=== PATIENT | female | born 1950 | race Caucasian/White ===

== ENCOUNTER 2021-03-27 08:27 | Emergency (ER) | payer MEDICARE, SELFPAY ==
--- NOTE | ~2021-03-27 | CT_ITS ---
EXAMINATION: CT abdomen pelvis wo con DATE: 03/27/2021 11:10 INDICATION: Left lower quadrant abdominal pain, generalized abdominal pain. Diarrhea. Status post willy endectomy. TECHNIQUE: Computed tomography (CT) of the abdomen and pelvis was performed without intravenous contr ast. Automated exposure control and iterative reconstruction technique were employed. Exam dose: 759 .90 mGy-cm total exam DLP. COMPARISON: 01/31/2017 CT abdomen pelvis FINDINGS: The lung bases are clear. Normal heart size. No pericardial or pleural effusion. Approximately 4.7 mm probable hepatic cyst.. A few hepatic and splenic calcifications are likely due to old granulomatous disease. Normal splenic size. There is some thickening of the wall of the gallbladder and mild pericholecystic fat stranding. Acute or chronic cholecystitis is not excluded. Consider gallbladder ultrasound correlation, with radionuc lide hepatobiliary scan if clinically appropriate. No bile duct or pancreatic duct dilatation. No verdugo creatic mass lesion or calcification. Normal morphology of the adrenal glands. No urinary tract calculus or hydroureteronephrosis. Normal caliber of the abdominal aorta. No intraperitoneal or retroperitoneal or pelvic mass lesion or adenopathy or ascites. The uterus and adnexal areas and urinary bladder are unremarkable. There are numerous diverticula of the sigmoid and descending colon. There is some prominent pericolic fat soft tissue stranding in the proximal to mid sigmoid area, suggesting sigmoid diverticulitis. No significant drainable abscess cavity is identified. No free intraperitoneal air is noted. Status post appendectomy. No bowel obstruction is detected. Diffuse idiopathic skeletal hyperostosis of the thoracic spine. Severe degenerative disc disease at L2-3 through L5-S1. Degenerative change of the lumbar apophyseal joints. Bilateral hip osteoarthritis. IMPRESSION: Sigmoid diverticulitis Diverticulosis of left colon Thickening of the gallbladder wall, mild pericholecystic fat stranding; diffusion diagnosis includes acute and chronic cholecystitis. Consider gallbladder ultrasound, with repeated right hepatic there i s scan if clinically appropriate Status post appendectomy 4.7 mm hepatic cyst Reviewed, dictated and finalized at [facility]. Reviewed, dictated and finalized at location [facility]. IMPRESSION: Sigmoid diverticulitis Diverticulosis of left colon Thickening of the gallbladder wall, mild pericholecystic fat stranding; diffusi on diagnosis includes acute and chronic cholecystitis. Consider gallbladder ult rasound, with repeated right hepatic there is scan if clinically appropriate Status post appendectomy 4.7 mm hepatic cyst
[2021-03-27 08:53] VITALS: BP 156/79; PULSE 77; RESP 17; TEMP 36.4; O2SAT 96
--- NOTE | 2021-03-27 09:09 | ED.ABDPAIN ---
HPI - Abdominal Pain General Chief Complaint: Abdominal Pain Stated Complaint: BLOODY STOOLS Source: patient and family Mode of arrival: ambulatory Limitations: no limitations History of Present Illness MD elicited complaint: abdominal pain Pertinent past history: none Onset (ago): hour(s) (10) Pain Consistency: intermittent Location: LLQ Severity: moderate Quality: aching and sharp Radiation: back Migration to: no migration Exacerbating factors: nothing Relieving factors: nothing Context: confirms possible food poisoning ( Ate some chicken at a faith social) Associated symptoms: nausea, vomiting (once) and diarrhea (with pink mucous) Related Data Home Medications Medication Instructions Recorded Confirmed Bifidobacterium infantis 4 mg 4 mg PO DAILY 11/27/19 03/27/21 capsule cholecalciferol (vitamin D3) 50 50 mcg PO .M W F cap 11/27/19 03/27/21 mcg (2,000 unit) capsule fexofenadine 60 mg tablet 60 mg PO Q12H 02/01/21 03/27/21 psyllium husk 0.4 gram capsule 0.4 g PO DAILY 02/01/21 03/27/21 vitamin B complex 1 tablet PO DAILY 02/01/21 03/27/21 Allergies Allergy/AdvReac Type Severity Reaction Status Date / Time Iodinated Contrast Media Allergy Unknown Unknown Verified 03/27/21 08:49 sertraline Allergy Unknown Hives Verified 03/27/21 08:49 Sulfa (Sulfonamide Allergy Unknown Hives Verified 03/27/21 08:49 Antibiotics) Contrast Media Allergy Unknown Unknown Uncoded 02/01/21 15:28 Review of Systems Review of Systems: All systems reviewed & are unremarkable except as noted in HPI and below Constitutional: Constitutional: Reports chills Comments: was sweaty last night Cardiovascular: Cardiovascular: Denies chest pain Respiratory: Respiratory: Denies cough and Denies dyspnea Genitourinary: Genitourinary: Denies nocturia and Denies dysuria [facility]LY [facility] Past Medical History Medical History Anxiety disorder, unspecified Chronic renal insufficiency, stage III (moderate) Essential (primary) hypertension H/O diverticulitis of colon Hx of colonic polyp Other hyperlipidemia Vitamin B12 deficiency Vitamin D deficiency Surgical History Surgical History History of appendectomy (~03/2018) History of eye surgery Hx of colonoscopy (~2017) polyps - Dr. Holloway- [facility] Hx of dilation and curettage Hx of tonsillectomy Family History Family History Grandparent Family history of coronary artery disease Family history of type 2 diabetes mellitus Social History Social History Second hand tobacco smoke exposure: No Alcohol intake: current Substance use: never Substance use type: does not use Gender identity (if verbalized by the patient): Female Exam Const: General: healthy appearing, no acute distress and alert Nutritional Appearance: well nourished and obese centrally obese Orientation/consciousness: patient oriented x3 HENMT: Head: normal to inspection Ears: external ears normal Mouth: Yes moist mucous membranes Eyes: Conjunctivae: conjunctivae normal Pupils: Equal, round and reactive pupils present EOM: EOMs intact bilaterally Neck: Neck: normal visual inspection Resp: Effort & Inspection: normal respiratory effort Auscultation: clear to auscultation bilaterally Cardio: Rate: regular rate Rhythm: regular rhythm GI: GI Palp: Yes Soft to palpation, Yes Tenderness to palpation present (GI) (LLQ moderate), Yes Guarding due to palpation present (GI) and No Rebound tenderness present Auscultation: normal bowel sounds Back/Spine/Pelvis: Back: No no CVA tenderness Cervical Spine: cervical ROM normal Thoracic/Lumbar Spine: thoraco-lumbar ROM normal Skin: General skin exam: normal color Rashes: no rashes Neuro: General: patient oriented x3, moves all extremities, no meningeal signs and n
[2021-03-27 09:41] LABS: Basophils Absolute Auto 0.02 K/mm3 (0.00-0.10); Basophils Percent Auto 0.2 % (0.0-1.0); Eosinophils Absolute Auto 0.07 K/mm3 (0.02-0.50); Eosinophils Percent Auto 0.6 % (1.0-6.0); Hematocrit 40.2 % (35.0-42.0); Hemoglobin 13.3 g/dL (11.7-13.8); Immature Granulocyte Absolute 0.06 K/mm3 (0.00-0.00); Immature Granulocyte Percent A 0.5 % (0.0-0.0); Lymphocytes Absolute Auto 1.31 K/mm3 (1.10-4.50); Lymphocytes Percent Auto 10.4 % (18.0-42.0); Mean Corpuscular HGB Conc 33.1 g/dL (32.0-36.0); Mean Corpuscular Volume 90.5 fL (78.0-102.0); Mean Platelet Volume 9.9 fl (9.2-11.8); Monocytes Absolute Auto 0.87 K/mm3 (0.10-0.90); Monocytes Percent Auto 6.9 % (2.0-11.0); Neutrophils Absolute Auto 10.3 K/mm3 (1.7-7.2); Neutrophils Percent Auto 81.4 % (50.0-70.0); Platelet Count Result 265 K/mm3 (150-420); Red Blood Count 4.44 M/mm3 (4.20-5.40); Red Cell Distribution Width 13.3 % (11.6-14.4); White Blood Count 12.6 K/mm3 (4.8-10.8)
--- NOTE | 2021-03-27 09:46 | PC.NURSE ---
urine sample obtained and delivered to lab with pt label on container.
[2021-03-27 09:47] LABS: Add Urine Microscopic? YES; Appearance Urine Clear (Clear); Bilirubin Urine Negative (Negative); Blood Urine 1+ (Negative); Color Urine Light Yellow (Yellow); Glucose Urine UA Negative (Negative); Ketones Urine Negative (Negative); Leukocyte Esterase Ur Trace LEU/UL (Negative); Nitrate Urine Negative (Negative); Protein Urine Negative (Negative); Urobilinogen Urine 0.2 mg/dL (0.2-1.0)
[2021-03-27 09:52] LABS: Bacteria Urine Trace /hpf; RBC Urine None seen /hpf (0-2); Squamous Epithelial Cell Urine Few /hpf (Few); WBC Urine 0-3 /hpf (0-3)
[2021-03-27 09:56] LABS: Alanine Aminotransferase 33 U/L (14-59); Albumin Level 3.7 g/dL (3.4-5.0); Alkaline Phosphatase 79 U/L (46-116); Anion Gap 12 mmol/L (8-16); Aspartate Amino Transferase 17 U/L (15-37); Bilirubin,Total 0.5 mg/dL (0.00-1.00); Blood Urea Nitrogen 22 mg/dL (7-18); Calcium 9.1 mg/dL (8.5-10.1); Carbon Dioxide 26 mmol/L (21-32); Chloride 103 mmol/L (98-108); Estimated CRCL calculation 47 ml/min; Estimated Glomerular Filt Rate 51; Glucose 104 mg/dL (70-99); Lipase 108 U/L (73-393); Osmolality Calculated 295 mOsm/kg (285-295); Potassium 4.3 mmol/L (3.5-5.1); Sodium 141 mmol/L (136-145); Total Protein 7.6 g/dL (6.4-8.2)
[2021-03-27 10:09] LABS: CRP 2.6 mg/dL (0.0-0.9)
[2021-03-27 11:38] VITALS: BP 138/70; PULSE 63; RESP 17; O2SAT 96
[2021-03-27 12:24] VITALS: BP 139/71; PULSE 57; RESP 17; O2SAT 96
== END 2021-03-27 12:27 | disposition home or self-care (01) ==
PROVIDERS: Emergency Provider Emergency Medicine; PCP Family Medicine
DX: K57.32 Diverticulitis of large intestine without perforation or abscess without bleeding (principal); F41.9 Anxiety disorder, unspecified; I12.9 Hypertensive chronic kidney disease with stage 1 through stage 4 chronic kidney disease, or unspecified chronic kidney disease; N18.30 Chronic kidney disease, stage 3 unspecified; E78.5 Hyperlipidemia, unspecified; E53.8 Deficiency of other specified B group vitamins; E55.9 Vitamin D deficiency, unspecified; Z86.010 Personal history of colon polyps
CPT/HCPCS: 36415; 74176; 80053; 81001; 83690; 85025; 86140; 99283; 99284

== ENCOUNTER 2021-04-10 07:47 | Outpatient (CLI) | payer MEDICARE, SELFPAY ==
--- NOTE | ~2021-04-10 | US_ITS ---
US abdomen limited INDICATION: Thickening of the gallbladder seen on recent CT. PROCEDURE: Realtime right upper abdominal ultrasound. COMPARISON: CT dated 03/27/2021 FINDINGS: The pancreas is normal without focal mass or pancreatic ductal dilation. There is a small liver cyst measuring 7 mm. Liver echotexture is increased and somewhat heterogeneous, consistent with fatty infiltration. There is normal directional flow in the portal vein. There are gallstones. Mild gallbladder wall thickening. Common bile duct measures 5 mm. Positive so nographic Gil's sign. IMPRESSION: 1: Cholelithiasis with gallbladder wall thickening and positive sonographic Gil's sign. Findings s uspicious for cholecystitis. Reviewed, dictated and finalized at location [facility]. IMPRESSION: 1: Cholelithiasis with gallbladder wall thickening and positive sonographic Mur phy's sign. Findings suspicious for cholecystitis.
== END 2021-04-10 07:48 | disposition home or self-care (01) ==
LOC: CHSIMG 07:50
PROVIDERS: PCP Family Medicine; Visit Provider Family Medicine
DX: R93.2 Abnormal findings on diagnostic imaging of liver and biliary tract (principal)
CPT/HCPCS: 76705

== ENCOUNTER 2021-04-10 15:41 | Emergency (ER) | payer MEDICARE, SELFPAY ==
[2021-04-10 15:44] VITALS: BP 131/96; PULSE 64; RESP 14; TEMP 36.4; O2SAT 99
[2021-04-10 16:16] LABS: Basophils Percent Auto 0.5 % (0.2-1.2); Eosinophils Absolute Auto 0.1 K/mm3 (0-0.3); Eosinophils Percent Auto 0.6 % (0-4.4); Hematocrit 40.1 % (37.0-47.0); Hemoglobin 13.3 g/dL (12.0-15.0); Immature Granulocyte Absolute 0.02 K/mm3 (0.00-0.031); Immature Granulocyte Percent A 0.2 % (0-0.5); Lymphocytes Absolute Auto 1.51 K/mm3 (0.9-3.2); Lymphocytes Percent Auto 17.9 % (18.3-44.2); Mean Corpuscular HGB Conc 33.2 g/dl (32-36); Mean Corpuscular Hemoglobin 30.3 pg (26-34); Mean Corpuscular Volume 91.3 fl (80-100); Mean Platelet Volume 10.6 fl (7.4-10.4); Monocytes Absolute Auto 0.7 K/mm3 (0.1-0.6); Monocytes Percent Auto 8.6 % (2.6-8.5); Neutrophils Absolute Auto 6.1 K/mm3 (1.3-6.7); Neutrophils Percent Auto 72.2 % (45.5-73.1); Platelet Count Result 275 k/mm3 (150-375); Red Blood Count 4.39 M/mm3 (4.2-5.4); White Blood Count 8.4 K/mm3 (4.5-10.0)
[2021-04-10 16:31] LABS: Alanine Aminotransferase 24 U/L (4-35); Albumin Level 4.6 g/dL (3.5-5.1); Alkaline Phosphatase 64 U/L (38-126); Anion Gap 11 mmol/L (8-16); Aspartate Amino Transferase 31 U/L (14-36); Bilirubin,Total 0.8 mg/dL (0.2-1.3); Blood Urea Nitrogen 16 mg/dL (7-17); Calcium 9.8 mg/dL (8.4-10.2); Carbon Dioxide 23 mmol/L (22-30); Chloride 104 mmol/L (98-107); Estimated CRCL calculation 49 ml/min; Estimated Glomerular Filt Rate 55; Glucose 95 mg/dL (65-110); Lipase 97 U/L (23-300); Potassium 4.2 mmol/L (3.4-5.0); Sodium 138 mmol/L (137-145)
[2021-04-10 16:53] VITALS: BP 142/74; PULSE 51; RESP 16; O2SAT 91
--- NOTE | 2021-04-10 17:47 | ED.GENADULT ---
HPI - General Adult General Chief complaint: Abdominal Pain Stated complaint: abn us Source: patient History of Present Illness HPI narrative: Patient is a 70 y/o female complaining of intermittent abdominal pain for last 2 weeks. She states that her pain is located in upper abdomen, more on the right side. She rates her pain as 5/10 when it occurs. Pain radiates to back sometime. She has some nausea at times, but no vomiting. She had outpatient US today and was sent here because it showed possible cholecystitis. Related Data Home Medications Medication Instructions Recorded Confirmed Bifidobacterium infantis 4 mg 4 mg PO DAILY 11/27/19 03/27/21 capsule cholecalciferol (vitamin D3) 50 50 mcg PO .M W F cap 11/27/19 03/27/21 mcg (2,000 unit) capsule fexofenadine 60 mg tablet 60 mg PO Q12H 02/01/21 03/27/21 psyllium husk 0.4 gram capsule 0.4 g PO DAILY 02/01/21 03/27/21 vitamin B complex 1 tablet PO DAILY 02/01/21 03/27/21 vitamin B complex 1 tablet PO DAILY 04/05/21 Allergies Allergy/AdvReac Type Severity Reaction Status Date / Time Iodinated Contrast Media Allergy Unknown Unknown Verified 04/05/21 10:05 sertraline Allergy Unknown Hives Verified 04/05/21 10:05 Sulfa (Sulfonamide Allergy Unknown Hives Verified 04/05/21 10:05 Antibiotics) Contrast Media Allergy Unknown Unknown Uncoded 04/05/21 10:05 Review of Systems Constitutional: Constitutional: Denies chills, Denies fever(s), Denies headache(s) and Denies weakness Eyes: Eyes: Denies blurry vision ENT: Denies headache(s) and Denies neck pain Cardiovascular: Cardiovascular: Denies chest pain and Denies dyspnea Respiratory: Respiratory: Denies cough and Denies dyspnea Gastrointestinal: Gastrointestinal: Reports abdominal pain, Denies diarrhea, Reports nausea and Denies vomiting Genitourinary: Genitourinary: Denies hematuria and Denies dysuria Musculoskeletal: Musculoskeletal: Denies back pain and Denies neck pain Neurologic: Denies headache(s) and Denies weakness PMFSH Past Medical History Medical History Anxiety disorder, unspecified Chronic renal insufficiency, stage III (moderate) Encounter for immunization Essential (primary) hypertension H/O diverticulitis of colon Hx of colonic polyp Other hyperlipidemia Vitamin B12 deficiency Vitamin D deficiency Surgical History Surgical History History of appendectomy (~03/2018) History of eye surgery Hx of colonoscopy (~2017) polyps - Dr. Holloway- [facility] Hx of dilation and curettage Hx of tonsillectomy Family History Family History Grandparent Family history of coronary artery disease Family history of type 2 diabetes mellitus Social History Social History Second hand tobacco smoke exposure: No Alcohol intake: current Substance use: never Substance use type: does not use Gender identity (if verbalized by the patient): Female Exam Const: General: no acute distress and well developed Orientation/consciousness: oriented to person, oriented to place, oriented to time and patient oriented x3 HENMT: Head: normocephalic Ears: external ears normal General nose exam: Normal external nose present Eyes: General: appearance normal, both eyes and all related structures Conjunctivae: conjunctivae normal Neck: Neck: normal visual inspection and full ROM Chest: Chest palpation & inspection: normal inspection of the chest and no tenderness Resp: Effort & Inspection: normal respiratory effort Auscultation: clear to auscultation bilaterally Cardio: Rate: regular rate Rhythm: regular rhythm GI: GI Palp: Yes abdominal tenderness (right upper quadrant) and Yes Soft to palpation Skin: General skin exam: normal color and turgor normal Neuro: General: oriented to person, oriented to getachew
[2021-04-10 19:10] VITALS: BP 142/75; PULSE 55; RESP 16; O2SAT 97
== END 2021-04-10 19:12 | disposition home or self-care (01) ==
PROVIDERS: Emergency Medicine; Emergency Provider Emergency Medicine; PCP Family Medicine
DX: K80.10 Calculus of gallbladder with chronic cholecystitis without obstruction (principal); I12.9 Hypertensive chronic kidney disease with stage 1 through stage 4 chronic kidney disease, or unspecified chronic kidney disease; N18.30 Chronic kidney disease, stage 3 unspecified; E78.5 Hyperlipidemia, unspecified; E53.8 Deficiency of other specified B group vitamins; E55.9 Vitamin D deficiency, unspecified; F41.9 Anxiety disorder, unspecified; Z86.010 Personal history of colon polyps
CPT/HCPCS: 36415; 80053; 83690; 85025; 99283

== ENCOUNTER 2021-04-25 11:17 | Outpatient (CLI) | payer MEDICARE, SELFPAY ==
--- NOTE | 2021-04-25 11:37 | ECG_ITS ---
Measurements Intervals [place] Rate: 57 P: 61 SC: 127 QRS: 31 QRSD: 101 T: 51 QT: 402 QTc: 393 Interpretive Statements SINUS BRADYCARDIA BASELINE ARTIFACT- I, III, AVR, AVL, AVF BORDERLINE ECG Electronically Signed On 04-25-2021 11:53:15 CDT by Jaspal Conroy D.O.
== END 2021-04-25 11:18 | disposition home or self-care (01) ==
LOC: ANHCARD 11:20
PROVIDERS: PCP Family Medicine; Visit Provider Family Medicine
DX: I10 Essential (primary) hypertension (principal); R94.31 Abnormal electrocardiogram [ECG] [EKG]
CPT/HCPCS: 93005

== ENCOUNTER 2021-04-27 10:55 | Outpatient (CLI) | payer MEDICARE, SELFPAY ==
[2021-04-27 11:33] LABS: Amylase 100 U/L (30-110)
== END 2021-04-27 10:56 | disposition home or self-care (01) ==
LOC: ANHSURGERY 10:56
PROVIDERS: PCP Family Medicine; Visit Provider Surgery
DX: K80.10 Calculus of gallbladder with chronic cholecystitis without obstruction (principal); Z01.818 Encounter for other preprocedural examination
CPT/HCPCS: 36415; 82150; 86850; 86900; 86901

== ENCOUNTER 2021-05-01 01:07 | Day surgery (SDC) | payer MEDICARE, SELFPAY ==
[2021-04-26 15:56] VITALS: BMI 33.3
--- NOTE | 2021-04-26 16:03 | PC.NURSE ---
Report to the Outpatient Waiting Room, entrance under the green pavilion located off [facility], at time _12 NOON on date _05/01/21 . OR Time: _2:00 PM . - You and your visitor will be asked a series of questions to screen for COVID 19 for your protection. - A mask is required within the hospital. - Only one visitor is allowed at this time. Patient visitors will be guided where to wait when not with patient. Preoperative COVID Testing Requirements: No COVID Test needed if: (proof is required; if not received patient will have Rapid Test prior to entry) - Patient has received COVID Vaccine at least 14 days prior to procedure date or - Patient has positive COVID test result within last 90 days of surgery date. COVID Test needed if above criteria is not met If not COVID vaccinated a COVID test must be conducted within 72 hours of surgery and patient is asked to isolate self from time of testing until procedure. You will go to the [facility] Testing Site for your COVID testing. The [facility] Testing site is located at the corner of [address] from [facility]. You will only be called if COVID results are positive and your surgeon may reschedule your elective surgery date. Patients may have clear liquids (water, carbonated beverages, clear teas, apple juice) until 3 hours prior to surgery with a maximum of 20 ounces. - No food from midnight until time of surgery - Infants may have breast milk until 4 hours before surgery, formula 6 hours prior to surgery. - Children will be allowed to drink immediately following surgery. If applicable, please bring a bottle or sippy cup to assist with drinking. Juice, water, soda, and popsicles are readily available. For infants on formula, please bring formula the day of surgery. Pacifiers are allowed. Take the following medications with a SIP of water the morning of surgery: BUSPIRONE,ESCITALOPRAM,CARVEDILOL Medications to discontinue per physician ALL VITAMINS AND SUPPLEMENTS Date to take last dose04/27/21 Please no make-up, nail swazi, hairspray, perfume, deodorant, or body powder the day of surgery. No jewelry (including any body piercings) or valuables the day of surgery, leave them at home. Please take a shower or bath the night before, or the morning of, surgery with an antibacterial soap. Wear comfortable, loose fitting clothing. Children are encouraged to wear pajamas. - Jewelry must be removed prior to entering the operating room. Rings and piercings that are not removed may be cut off. - The hospital will not accept responsibility for valuables. - Please leave all valuables, including medications, at home the day of surgery. HIBICLENS SHOWER MORNING OF SURGERY If you are going home after surgery, a licensed tower truck driver must drive you home. - NO public transportation without another adult. - We recommend that an adult stay with you for 24 hours following discharge. - We also recommend that you do not drive, make important decision, drink alcoholic beverages, or take any drugs that were not prescribed by your health care provider for at least 24 hours after your discharge time. For Pediatric surgeries, we recommend two adults accompany the child home (only one inside the building at this time). Follow any additional instructions given to you from your surgeon. Telephone instructions given to _PATIENT and asked if any additional questions and then verbalized understanding. Patient advised to call surgeon office or pre surgery nurse liaison [phone] if any additional questions.
[2021-05-01] VITALS (8 sets, daily range): BP systolic 139–167; BP diastolic 66–91; PULSE 45–56; RESP 12–18; TEMP 36–36.1; O2SAT 97–100
--- NOTE | 2021-05-01 07:39 | WPDANESEPPF ---
Anes - Initial Pre Proc Eval Procedure: Operation Date: 05/01/21 12:00 Proposed Procedures p Laparoscopic Cholecystectomy, Possible Open - Himanshu Ellsworth DO Date/Time: 05/01/21 07:39 Surgeon: Himanshu Ellsworth DO Pre Op Diagnosis: Chronic Cholecystitis With Cholelithiasis Patient Data Age: 70 Gender: F Height: 1.63 m Weight: 88 kg Allergies Allergy/AdvReac Type Severity Reaction Status Date / Time bupropion [From Wellbutrin] Allergy Unknown Hives Verified 04/26/21 15:25 Iodinated Contrast Media Allergy Unknown HIVES/RASH Verified 04/26/21 15:25 sertraline Allergy Unknown Hives Verified 04/26/21 15:25 Sulfa (Sulfonamide Allergy Unknown Hives Verified 04/26/21 15:25 Antibiotics) Contrast Media Allergy Unknown Hives Uncoded 04/26/21 15:26 Home Medications Medication Instructions Recorded Confirmed Type Bifidobacterium infantis 4 mg 4 mg PO QPM 11/27/19 04/26/21 History capsule cholecalciferol (vitamin D3) 50 50 mcg PO DAILY cap 11/27/19 04/26/21 History mcg (2,000 unit) capsule fexofenadine 60 mg tablet 60 mg PO DAILY 02/01/21 04/26/21 History psyllium husk 0.4 gram capsule 0.4 g PO HS 02/01/21 04/26/21 History carvedilol 6.25 mg tablet 6.25 mg PO Q12H #180 tablet 02/22/21 04/26/21 Rx buspirone 5 mg tablet 5 mg PO BID PRN #60 tablet 04/05/21 04/26/21 Rx escitalopram oxalate 20 mg tablet 20 mg PO DAILY #30 tablet 04/05/21 04/26/21 Rx famotidine 40 mg tablet 40 mg PO QHS #30 tablet 04/05/21 04/26/21 Rx cyanocobalamin (vitamin B-12) 1,000 mcg PO DAILY 04/26/21 04/26/21 History simvastatin [Zocor] 10 mg PO QMWF 04/26/21 04/26/21 History vitamins A,C,I-kbzf-lkimhv 1 cap PO DAILY 04/26/21 04/26/21 History [PreserVision AREDS] ECG: Date of Service: 04/25/21 Procedure(s): CA 12 lead EKG Accession Number(s): [id number] cc: ~ Measurements Intervals [place] Rate: 57 P: 61 [place]: 127 QRS: 31 QRSD: 101 T: 51 QT: 402 QTc: 393 Interpretive Statements SINUS BRADYCARDIA BASELINE ARTIFACT- I, III, AVR, AVL, AVF BORDERLINE ECG Electronically Signed On 04-25-2021 11:53:15 CDT by Jaspal Conroy D.O. Patient hx anesthesia problems: none Family hx anesthesia problems: none Results Review: All pre-operative results and documents have been reviewed as part of the pre-operative evaluation. [facility] Past Medical History Medical History (Updated 05/01/21 @ 07:39 by Jesus Jansen MD) Anxiety disorder, unspecified BMI 32.0-32.9,adult Chronic renal insufficiency, stage III (moderate) Encounter for immunization Essential (primary) hypertension H/O diverticulitis of colon Hx of colonic polyp Other hyperlipidemia Vitamin B12 deficiency Vitamin D deficiency Surgical History Surgical History History of appendectomy (~03/2018) History of eye surgery Hx of colonoscopy (~2017) polyps - Dr. Holloway- [facility] Hx of dilation and curettage Hx of tonsillectomy Family History Family History Grandparent Family history of coronary artery disease Family history of type 2 diabetes mellitus Father Heart disease Mother FH: kidney cancer Diabetes mellitus Social History Social History Smoking status: Never smoker Alcohol intake: current Alcohol use details: Rarely Substance use: never Substance use type: does not use Living arrangements: with family Additional living arrangements comments: Lives with Gender identity (if verbalized by the patient): Female Spiritual care concerns: No Anes -
[2021-05-01] MEDS: LACTATED RINGERS 1,000 ML 30 ML IV CONT ×2 (10:47→14:23)
[2021-05-01] MEDS: KETOROLAC 15 MG/ML VIAL (*BKC) IV PUSH (10:48)
[2021-05-01] MEDS: ACETAMINOPHEN 500 MG TABLET 1000 MG PO (10:48)
--- NOTE | 2021-05-01 12:43 | WPDHPUPDATE1 ---
History and Physical Update Update Date/Time: 05/01/21 12:43 History and Physical has been reviewed, including an updated exam of the patient. There are NO changes in the patient's condition. Risks, benefits, and alternatives have been discussed and questions answered. Patient agrees to proceed with procedure.
[2021-05-01] MEDS: ceFAZolin 2 GM/D5W 50 ML 2 GM/50 ML BAG IVPB (13:01)
--- NOTE | 2021-05-01 14:16 | W.PM.PROC2 ---
Procedure Note - Detailed Date of Procedure 05/01/21 Pre-op Diagnosis Chronic Cholecystitis With Cholelithiasis Post-op Diagnosis same Procedure Performed Laparoscopic Cholecystectomy Surgeon Himanshu Ellsworth, DO Anesthesia general and local (0.5% bupivacaine) Indications This is a 70-year-old woman who presented with right upper quadrant pain for the past month. About 1 month ago she was found to have diverticulitis and evidence of a thickened gallbladder wall. She was treated for diverticulitis but still continued to have some upper abdominal pains. Ultrasound showed evidence of cholelithiasis with gallbladder wall thickening. Discussions were made with the patient about treatment options and decision was made to proceed with laparoscopic cholecystectomy, possible open. Findings Laparoscopic cholecystectomy was performed. The gallbladder wall appeared chronically thickened. There were also multiple gallstones within the gallbladder. One large stone was stuck right near the neck of the gallbladder at the cystic duct. The cystic duct appeared normal in size. No other abnormalities were noted. The gallbladder was removed and sent to the lab for pathology. Description of Procedure Procedure as well as risks, benefits, and alternatives were discussed with patient. Written consent was obtained and placed in chart prior to procedure. The patient was brought back to surgical suite. Patient was placed in supine position on operating table. Time-out was done to confirm patient and procedure. Patient was then intubated by the anesthesia department. Abdomen was prepped and draped in sterile fashion using chlorhexidine prep. 0.5% bupivacaine with epinephrine was infiltrated at each site of incision. A 5 millimeter incision was made near the umbilicus, and a 5 millimeter Optiview trocar was advanced through the abdominal layers under direct visualization. Once inside the abdominal cavity, carbon dioxide was insufflated to create a pneumoperitoneum. The camera was inserted and the abdomen was inspected. No immediate abnormalities were identified. The patient was placed in reverse Trendelenburg position and rotated slightly to the left. An 11 millimeter incision was made in the subxiphoid region, and an 11 millimeter trocar was inserted under direct visualization. Two 5 millimeter incisions were made in the right upper quadrant, and two 5 millimeter trocars were inserted under direct visualization. The gallbladder was identified and grasped at the fundus and retracted superiorly. It was then grasped at the infundibulum retracted laterally. Careful dissection around the neck of the gallbladder was performed using blunt dissection with a [place] grasper and hook electrocautery. The cystic duct was identified, and a window was created behind it. The cystic artery was also identified and a window was created behind it. The critical view of safety was identified, visualizing the cystic duct running directly into the neck of the gallbladder, and the cystic artery running directly into the wall of the gallbladder. A 5 millimeter clip system safety engineer was then used to place 2 clips proximally and 1 clip distally on both the cystic duct and cystic artery. They were then both transected using endoscopic scissors. Once safely away from the medardo hepatitis, the gallbladder was dissected free from the liver bed using hook electrocautery. Hemostasis was achieved along the way. The gallbladder was removed completely and then removed through the subxiphoid port. The liver bed was then inspected. Hemostasis appeared adequate, and our clips appeared secure. The area was gently irrigated with sterile saline. No other abnormalities were seen. The patient was flattened out in bed, and 1 final inspection was made around the abdominal cavity. The subxiphoid port was removed, and a Main Kia cone was used to approximate the fascia with an 0-Vicryl simple interrupted suture.
--- NOTE | 2021-05-01 14:59 | SUR.PHASEI ---
Simple mask removed at 1451.
[2021-05-01] MEDS: fentaNYL CITRATE INJ (*CRX) 100 MCG/2 ML VIAL 25 MCG IV PUSH ×2 (15:11→15:36)
[2021-05-01] MEDS: oxyCODONE HCL (*CRX) 5 MG TAB IR PO (15:47)
== END 2021-05-01 16:35 | disposition home or self-care (01) ==
PROVIDERS: PCP Family Medicine; Visit Provider Surgery
PROC: 0FT44ZZ Resection of Gallbladder, Percutaneous Endoscopic Approach (ICD-10-PCS; CPT 47562; principal; 2021-05-01 12:00)
DX: K80.12 Calculus of gallbladder with acute and chronic cholecystitis without obstruction (principal); R00.1 Bradycardia, unspecified; E55.9 Vitamin D deficiency, unspecified; R10.32 Left lower quadrant pain; I12.9 Hypertensive chronic kidney disease with stage 1 through stage 4 chronic kidney disease, or unspecified chronic kidney disease; N18.30 Chronic kidney disease, stage 3 unspecified; E78.5 Hyperlipidemia, unspecified; E53.8 Deficiency of other specified B group vitamins; F41.9 Anxiety disorder, unspecified; E66.9 Obesity, unspecified; Z68.31 Body mass index [BMI] 31.0-31.9, adult
CPT/HCPCS: 47562; 36415; 82150; 86850; 86900; 86901; 88304; A9270; J0690; J1100; J1885; J2250; J2405; J2704; J2710; J3010; J7120

== ENCOUNTER 2021-08-02 15:34 | Outpatient (CLI) | payer MEDICARE, SELFPAY ==
--- NOTE | ~2021-08-02 | XR_ITS ---
XR hip RT 2V w AP pelvis DATE: 08/02/2021 16:01 INDICATION: Posterior right hip pain for 2 months. No injury. TECHNIQUE: AP pelvis. AP and lateral views of right hip. COMPARISON: None FINDINGS: There is prominent asymmetric loss of right hip joint spaces as well as right hip spurring, consistent with prominent right hip osteoarthritis. No fracture or dislocation, avascular necrosis or bone destruction of the right hip is evident. The pubic symphysis and sacroiliac joints are intact. IMPRESSION: Prominent asymmetric right hip osteoarthritis Reviewed, dictated and finalized at location A. UCTION DIRECTOR
== END 2021-08-02 15:35 | disposition home or self-care (01) ==
LOC: CHSIMG 15:36
PROVIDERS: PCP Family Medicine; Visit Provider Family Medicine
DX: M25.551 Pain in right hip (principal)
CPT/HCPCS: 73502

== ENCOUNTER 2021-12-05 10:54 | Outpatient (CLI) | payer MEDICARE, SELFPAY ==
--- NOTE | 2021-12-05 11:06 | ECG_ITS ---
Measurements Intervals [place] Rate: 54 P: 47 [place]: 142 QRS: 52 QRSD: 101 T: 39 QT: 423 QTc: 404 Interpretive Statements SINUS BRADYCARDIA Electronically Signed On 12-05-2021 11:23:23 CDT by Mikey Judd M.D.
== END 2021-12-05 10:55 | disposition home or self-care (01) ==
LOC: ANHLAB 10:58
PROVIDERS: PCP Family Medicine; Visit Provider Family Medicine
DX: I10 Essential (primary) hypertension (principal); R00.1 Bradycardia, unspecified
CPT/HCPCS: 93005

== ENCOUNTER 2021-12-15 11:51 | Outpatient (CLI) | payer MEDICARE, SELFPAY ==
[2021-12-15 13:44] LABS: Basophils Percent Auto 0.6 % (0.2-1.2); Eosinophils Absolute Auto 0.3 K/mm3 (0-0.3); Eosinophils Percent Auto 3.8 % (0-4.4); Hematocrit 42.5 % (37.0-47.0); Hemoglobin 14.1 g/dL (12.0-15.0); Immature Granulocyte Absolute 0.02 K/mm3 (0.00-0.031); Immature Granulocyte Percent A 0.3 % (0-0.5); Lymphocytes Absolute Auto 1.86 K/mm3 (0.9-3.2); Lymphocytes Percent Auto 27.2 % (18.3-44.2); Mean Corpuscular HGB Conc 33.2 g/dl (32-36); Mean Corpuscular Hemoglobin 30.1 pg (26-34); Mean Corpuscular Volume 90.6 fl (80-100); Mean Platelet Volume 10.4 fl (7.4-10.4); Monocytes Absolute Auto 0.8 K/mm3 (0.1-0.6); Monocytes Percent Auto 11.3 % (2.6-8.5); Neutrophils Absolute Auto 3.9 K/mm3 (1.3-6.7); Neutrophils Percent Auto 56.8 % (45.5-73.1); Platelet Count Result 273 k/mm3 (150-375); Red Blood Count 4.69 M/mm3 (4.2-5.4); White Blood Count 6.8 K/mm3 (4.5-10.0)
[2021-12-15 13:53] LABS: Hemoglobin A1C 5.2 % (<5.7)
[2021-12-15 13:54] LABS: Urine Cotinine NEGATIVE
[2021-12-15 14:09] LABS: Appearance Urine Slightly Cloudy (Clear); Bilirubin Urine Negative (Negative); Blood Urine Trace-lysed (Negative); Color Urine Yellow (Yellow); Glucose Urine UA Negative (Negative); Ketones Urine Negative (Negative); Leukocyte Esterase Ur Negative LEU/UL (Negative); Nitrate Urine Negative (Negative); Protein Urine Negative (Negative); Specific Grav Ur 1.015 (1.001-1.035); Urobilinogen Urine 0.2 mg/dL (<2.0)
[2021-12-15 14:11] LABS: Add Urine Microscopic? YES
[2021-12-15 14:13] LABS: Mucus Urine Rare /lpf; RBC Urine 0-2 /hpf (0-2); WBC Urine 0-3 /hpf
[2021-12-15 14:45] LABS: Partial Thromboplastin Time 28.4 SECONDS (22.3-36.8); Prothrombin Time 12.3 Seconds (11.1-14.7)
== END 2021-12-15 11:52 | disposition home or self-care (01) ==
LOC: ANHSURGERY 11:56
PROVIDERS: PCP Family Medicine; Visit Provider Orthopaedic Surgery
DX: M16.11 Unilateral primary osteoarthritis, right hip (principal); Z01.818 Encounter for other preprocedural examination
CPT/HCPCS: 80307; 81001; 81003; 83036; 85025; 85610; 85730; 86850; 86900; 86901; 87081

== ENCOUNTER 2021-12-27 02:01 | Day surgery (SDC) | payer MEDICARE, SELFPAY ==
[2021-12-15 12:29] VITALS: BMI 31.7
--- NOTE | 2021-12-15 12:44 | PC.NURSE ---
Report to the Outpatient Waiting Room, entrance under the green pavilion located off [facility], at time _6:00AM on date __12/27/21 . OR Time: ___7:30AM . - You and your visitor will be asked a series of questions to screen for COVID 19 for your protection. - Only one visitor is allowed at this time. - The patient visitor is requested to leave or wait in car when not with patient. - A mask is required within the hospital. Patients may have clear liquids (water, carbonated beverages, clear teas, apple juice) until 3 hours prior to surgery with a maximum of 20 ounces. - No food from midnight until time of surgery Take the following medications with a SIP of water the morning of surgery: ___BUSPIRONE, CARVEDILOL, ESCITALOPRAM Medications to discontinue per physician _ HOLD MELOXICAM (NSAIDS) 10 DAYS PRE-OP PER DR BARRAZA(PER PT)- LAST DOSE 12/16/21. HOLD ALL VITAMINS/SUPPLEMENTS 3 DAYS PRE-OP- LAST DOSE 12/23/21 Please no make-up, nail macedonian, hairspray, perfume, deodorant, or body powder the day of surgery. No jewelry (including any body piercings) or valuables the day of surgery, leave them at home. Please take a shower or bath the night before, or the morning of, surgery with an antibacterial soap. Wear comfortable, loose fitting clothing. Children are encouraged to wear pajamas. - Jewelry must be removed prior to entering the operating room. Rings and piercings that are not removed may be cut off. - The hospital will not accept responsibility for valuables. - Please leave all valuables, including medications, at home the day of surgery. If you are going home after surgery, a licensed wedding transportation driver must drive you home. - NO public transportation without another adult. - We recommend that an adult stay with you for 24 hours following discharge. - We also recommend that you do not drive, make important decision, drink alcoholic beverages, or take any drugs that were not prescribed by your health care provider for at least 24 hours after your discharge time. Follow any additional instructions given to you from your surgeon. If you or anyone in your household have experienced Covid symptoms in the past week, please notify your surgeon or the nurse liaison at the phone number below for possible testing. Telephone instructions given to _PATIENT & HUSBAND and asked if any additional questions and then verbalized understanding. Patient advised to call surgeon office or pre surgery nurse liaison [phone] if any additional questions.
[2021-12-15 13:07] VITALS: BP 128/74; PULSE 60; RESP 16; TEMP 36.3; O2SAT 97
--- NOTE | 2021-12-26 13:18 | WPDANESEPPF ---
Anes - Initial Pre Proc Eval Procedure: Operation Date: 12/27/21 07:30 Proposed Procedures p Right Total Hip Arthroplasty - Vern Dunlap MD Date/Time: 12/26/21 13:18 Surgeon: Vern Dunlap MD Pre Op Diagnosis: right hip djd Patient Data Age: 71 Gender: F Height: 1.61 m Weight: 82.6 kg Last Vital Signs Temp 36.3 C L 12/15/21 13:07 Pulse 60 12/15/21 13:07 Resp 16 12/15/21 13:07 BP 128/74 12/15/21 13:07 Pulse Ox 97 12/15/21 13:07 O2 Del Method Room Air 12/15/21 13:07 Allergies Allergy/AdvReac Type Severity Reaction Status Date / Time bupropion [From Wellbutrin] Allergy Intermediate Hives Verified 12/27/21 06:31 Iodinated Contrast Media Allergy Intermediate HIVES/RASH Verified 12/27/21 06:31 sertraline Allergy Intermediate Hives Verified 12/27/21 06:31 Sulfa (Sulfonamide Allergy Intermediate Hives Verified 12/27/21 06:31 Antibiotics) Home Medications Medication Instructions Recorded Confirmed Type Bifidobacterium infantis 4 mg 4 mg PO QPM 11/27/19 12/27/21 History capsule (Align) simvastatin 10 mg tablet (Zocor) 10 mg PO QMWF 04/26/21 12/27/21 History vitamins A,C,U-umob-janull 14,320 1 cap PO DAILY 04/26/21 12/27/21 History unit-226 mg-200 unit capsule (PreserVision AREDS) buspirone 5 mg tablet 5 mg PO BID PRN anxiety or stress 12/15/21 12/27/21 History calcium carbonate 500 mg calcium 500 mg PO DAILY PRN Indigestion 12/15/21 12/27/21 History (1,250 mg) chewable tablet cholecalciferol (vitamin D3) 25 50 mcg PO DAILY 12/15/21 12/27/21 History mcg (1,000 unit) chewable tablet cyanocobalamin (vitamin B-12) 2,500 mcg PO DAILY 12/15/21 12/27/21 History 2,500 mcg tablet escitalopram oxalate 20 mg tablet 20 mg PO QAM 12/15/21 12/27/21 History fexofenadine 180 mg tablet 180 mg PO DAILY 12/15/21 12/27/21 History (Allergy Relief (fexofenadine)) meloxicam 15 mg tablet 7.5 mg PO BID PRN Pain 12/15/21 12/27/21 History carvedilol 6.25 mg tablet (Coreg) 6.25 mg PO Q12H #180 tabs 12/21/21 12/27/21 Rx ECG: Date of Service: 12/05/21 Procedure(s): CA 12 lead EKG Accession Number(s): [id number] cc: ~ ? Measurements Intervals? [place]? Rate: ? 54 ? P:? 47 OR: ? 142? QRS:? 52 QRSD: ? 101? T:? 39 QT: ? 423? QTc:? 404? Interpretive Statements SINUS BRADYCARDIA Electronically Signed On 12-05-2021 11:23:23 CDT by Mikey Judd M.D. Patient hx anesthesia problems: none Family hx anesthesia problems: none Results Review: All pre-operative results and documents have been reviewed as part of the pre-operative evaluation. [facility] Past Medical History Medical History Abdominal pain Afib Anxiety Anxiety disorder, unspecified Arthritis BMI 32.0-32.9,adult Chronic renal insufficiency, stage III (moderate) Congestion of throat Diarrhea Encounter for immunization Essential (primary) hypertension Gastroesophageal reflux H/O diverticulitis of colon Hx of colonic polyp Other hyperlipidemia UTI (urinary tract infection) Vitamin B12 deficiency Vitamin D deficiency Wears glasses Surgical History Surgical History History of appendectomy (~03/2018) History of eye surgery Hx laparoscopic cholecystectomy 05/01/21 Hx of colonoscopy (~2017) polyps - Dr. Holloway- [facility] Hx of dilation and curettage Hx of tonsillectomy Family History Family History Grandparent Family history of coronary artery disease Family history of type 2 diabetes mellitus Father Heart disease Mother FH: kidney cancer Diabete
[2021-12-27] VITALS (21 sets, daily range): BP systolic 104–173; BP diastolic 52–89; PULSE 52–68; RESP 12–17; TEMP 36.2–36.6; O2SAT 95–100; BMI 31.4
--- NOTE | ~2021-12-27 | XR_ITS ---
EXAMINATION: XR hip RT min 2V DATE: 12/27/2021 10:09 INDICATION: Postoperative evaluation following right total hip arthroplasty TECHNIQUE: Anteroposterior and lateral views of the right hip were obtained. COMPARISON: Intraoperative radiograph dated 09/07/2021 FINDINGS: Interval placement of a noncemented right total hip arthroplasty which appears well seated in near an atomic alignment. As a component is affixed with a single screw. Expected small amount of soft tissue gas in the postoperative bed. No fractures identified. Mild right sacroiliac osteoarthritis. IMPRESSION: 1. Right total hip arthroplasty, negative for postoperative purposes. Reviewed, dictated and finalized at location A.
[2021-12-27] MEDS: ACETAMINOPHEN 500 MG TABLET 1000 MG PO (06:38)
[2021-12-27] MEDS: LACTATED RINGERS 1,000 ML 30 ML IV CONT ×2 (06:46→09:52)
[2021-12-27] MEDS: TRANEXAMIC ACID 1,000MG/ISO100 1,000 MG/100 ML BAG 200 MG IVPB (07:07)
--- NOTE | 2021-12-27 07:08 | WPDHPUPDATE1 ---
History and Physical Update Update Date/Time: 12/27/21 07:08 History and Physical has been reviewed, including an updated exam of the patient. There are NO changes in the patient's condition. Risks, benefits, and alternatives have been discussed and questions answered. Patient agrees to proceed with procedure.
--- NOTE | 2021-12-27 07:09 | PM.IMHP ---
H&P: HPI History of Present Illness Date/Time: 12/27/21 07:09 Chief Complaint: RIGHT HIP PAIN Narrative: Pt presents with Right hip pain that has been present since approximately May 2021. NKI. Her pain is located at the region of the lateral hip, radiating down to the lateral knee and anterior lower leg/neil. She ambulates with a noticeable limp. No use of AD. She states her pain has been keeping her from sleeping. She cannot pinpoint a specific activity that exacerbates her hip pain. She states it is more sporadic/random. She has not had any issues with her low back, that she is aware of. She is taking Meloxicam, ordered by her PCP, which has provided some relief. She was unable to complete some ADL's; donning socks, but is now able to, since starting the medication. She was also recently ordered a hip injection under fluoroscopy but did not complete the tx and has instead decided to move forward with total hip arthroplasty.?She is currently scheduled for Rt JUAN 12/12/21. Involved hip: right Onset: gradual Location of pain: lateral and diffuse Character: radiating, aching and shooting Timing of pain: constant Exacerbated by: weight bearing, kneeling, squatting, stairs and rotational activities Relieved by: NSAIDs (Meloxicam), ice and rest Associated symptoms: Reports leg pain at rest and weakness History of occupational/recreational activity with repetitive movement: No History of prior hip injury: No Review of Systems Constitutional: Constitutional: Reports no additional constitutional complaints Eyes: Eyes: Reports no additional eye complaints ENT: Reports system reviewed and no additional complaints, except as documented Cardiovascular: Cardiovascular: Reports no additional cardiovascular complaints Respiratory: Respiratory: Reports no additional respiratory complaints, Denies cough and Denies dyspnea Gastrointestinal: Gastrointestinal: Reports no additional gastrointestinal complaints Genitourinary: Genitourinary: Reports no additional female genitourinary complaints Musculoskeletal: Musculoskeletal: Reports no additional musculoskeletal complaints Integumentary/Breasts: Skin/Breast: Reports system reviewed and no additional complaints, except as docu Neurologic: Reports system reviewed and no additional complaints, except as documented Psychiatric: Psychiatric: Reports no additional psychiatric complaints Endocrine: Endocrine: Reports no additional endocrine complaints Hematologic/Lymphatic: Hematologic/Lymphatic: Reports no additional hematologic/lymphatic complaints Allergic/Immunologic: Allergic/Immunologic: Reports no additional allergic/immunologic complaints PMFSH Past Medical History Medical History Abdominal pain Afib Anxiety Anxiety disorder, unspecified Arthritis BMI 32.0-32.9,adult Chronic renal insufficiency, stage III (moderate) Congestion of throat Diarrhea Encounter for immunization Essential (primary) hypertension Gastroesophageal reflux H/O diverticulitis of colon Hx of colonic polyp Other hyperlipidemia UTI (urinary tract infection) Vitamin B12 deficiency Vitamin D deficiency Wears glasses Surgical History Surgical History History of appendectomy (~03/2018) History of eye surgery Hx laparoscopic cholecystectomy 05/01/21 Hx of colonoscopy (~2017) polyps - Dr. Holloway- [facility] Hx of dilation and curettage Hx of tonsillectomy Family History Family History Grandparent Family history of coronary artery disease Family history of type 2 diabetes mellitus Father Heart disease Mother FH: kidney cancer Diabetes mellitus Other Arthritis Kidney disorder Social History Social History Smoking status: Never smoker Alcohol intake: curr
[2021-12-27] MEDS: ceFAZolin 2 GM/D5W 50 ML 2 GM/50 ML BAG IVPB ×2 (07:27→14:39)
[2021-12-27] MEDS: TRANEXAMIC ACID 1,000 MG/10 ML AMPUL 1000 MG IV PUSH (09:09)
--- NOTE | 2021-12-27 10:05 | W.PM.PROC2 ---
Procedure Note - Detailed Date of Procedure 12/27/21 Pre-op Diagnosis right hip djd Post-op Diagnosis Same Procedure Performed R JUAN Surgeon Vern Dunlap MD Anesthesia General Description of Procedure THE PATIENT WAS TAKEN TO THE OPERATING ROOM IN STABLE CONDITION AND WAS PLACED IN THE LATERAL DECUBITUS AND THE RIGHT LOWER EXTREMITY WAS PREPPED AND DRAPED IN THE STERILE FASHION. INCISION WAS MADE IN THE POSTERIOR LATERAL SIDE OF THE HIP, DOWN TO THE FASCIA LAYER. THE FASCIA WAS INCISED. THE HIP WAS EXPOSED. THE SHORT EXTERNAL ROTATORS WERE EXPOSED. THE SCIATIC NERVE WAS IDENTIFIED. INCISION WAS MADE THROUGH THE SORT EXTERNAL ROTATORS AND THE CAPSULE OF THE HIP JOINT. THE HIP WAS DISLOCATED. AN OSTEOTOMY WAS MADE TO THE FEMORAL NECK ABOUT 1 CM PROXIMAL TO THE LESSER TROCHANTER. THE ACETABULUM WAS EXPOSED. THERE WAS SEVERE DJD SEEN. BEGINNING WITH A 43 REAMER THE ACETABULUM WAS REAMED TO 49 MM. A 49 MM TRIAL WAS PLACED IN 35 DEG OF ABDUCTION AND ANTEVERSION WAS IN ALIGNMENT WITH THE TRANS ACETABULAR LIGAMENT. THE FIT WAS EXCELLENT. THE TRIAL WAS REMOVED. A 50 MM BIOMET G7 COMPONENT WAS THEN TAPPED IN TO PLACE IN 35 DEG OF ABDUCTION AND ANTEVERSION IN ALIGNMENT WITH THE TRANSVERSE ACETABULAR LIGAMENT. THE FIT WAS EXCELLENT. ONE SCREW WAS USED TO SECURE THE IMPLANT AND HAD AN EXCELLENT BITE. THE ACETABULAR LINER WAS PLACED AND CHECKED FOR STABILITY. NEXT THE FEMUR WAS PREPARED WITH INITIAL CANAL FINDER THEN SEQUENTIAL BROACHING WITH A TAPERLOC HIP SYSTEM, UNTIL A 5 BROACH FIT WELL IN 15 OF ANTEVERSION. A -3 HIGH OFFSET NECK WITH 36 MM HEAD TRIAL WAS PLACED. THE SHUCK TEST WAS EXCELLENT AND THE STABILITY IN FLEXION AND ROTATION WAS EXCELLENT. LEG LENGTHS WERE GROSSLY EQUAL. TRIALS WERE REMOVED. A BIOMET TAPERLOC 5 STEM WAS PLACED WITH A HIGH OFFSET NECK THE FIT WAS EXCELLENT IN 15 DEG OF ANTEVERSION. A -3 CERAMIC 36 MM FEMORAL HEAD WAS PLACED. THE HIP WAS TRIALED AND THE STABILITY WAS EXCELLENT WERE THE LEG LENGTHS AND THE SHUCK TEST. THE WOUND WAS IRRIGATED WITH STERILE BETADINE AND WATER FOR 3 MIN. THEN WASHED AGAIN. THE CAPSULE AND THE EXTERNAL ROTATORS WERE APPROXIMATED WITH NUMBER 1 VICRYL. THE FASCIA WITH No 2 QUIL AND THE SUB CUTANEOUS LAYER WITH 2-0 ABSORBABLE SUTURE WITH A RUNNING 3-0 SUBCUTICULAR LAYER WELL. DERMABOND WAS PLACED AND STERILE DRESSING WAS APPLIED. PATIENT WAS PLACED BACK ON TO THE SUPINE POSITION AND WAS EXTUBATED Estimated Blood Loss 150 Complications No immediate complications Condition Stable Disposition PACU
[2021-12-27] MEDS: fentaNYL CITRATE INJ (*CRX) 100 MCG/2 ML VIAL 25 MCG IV PUSH ×4 (10:19→11:43)
[2021-12-27 12:20] LABS: Hematocrit 37.4 % (37.0-47.0)
--- NOTE | 2021-12-27 12:25 | SUR.PHASEI ---
1115 PT MEETS ANESTHESIA CRITERIA TO BE DISCHARGED FROM PACU. NO ROOM ON THE FLOOR AVAILABLE. PT CURRENTLY ON HOLD AWAITING ROOM.
--- NOTE | 2021-12-27 13:37 | PC.NURSE ---
This patient, Gaviota Singh, was admitted to Medical Room 249-01. Patient/family oriented to hospital policies and general routines including ID bracelet, bed and alarms, visiting hours, pain management, procedures, bathroom and other care routines, personal items, smoking policy, room service/diet, and visiting hours. Information on how to activate the Rapid Response Team has been discussed. Patient/Family are encouraged to report perceived risks to care and to ask questions if they do not understand what they are told or what they should do.
[2021-12-27] MEDS: DEXTROSE 5%/0.45% SOD CHL 1,000 ML 80 ML IV CONT (14:15)
[2021-12-27] MEDS: HYDROcodone/acetaminophen (*CRX) 7.5-325 MG TABLET 1 TAB PO ×2 (14:15→21:31)
[2021-12-27] MEDS: KETOROLAC 15 MG/ML VIAL (*BKC) IV PUSH ×2 (14:39→16:59)
[2021-12-27] MEDS: SENNA/DOCUSATE SODIUM TABLET 2 TAB PO (16:58)
[2021-12-27] MEDS: ASPIRIN 325 MG ENTERIC TABLET PO (21:27)
[2021-12-27] MEDS: carvediloL 6.25 MG TABLET PO (21:27)
[2021-12-28] MEDS: KETOROLAC 15 MG/ML VIAL (*BKC) IV PUSH ×3 (00:07→11:49)
[2021-12-28] MEDS: ceFAZolin 2 GM/D5W 50 ML 2 GM/50 ML BAG IVPB ×2 (00:07→06:20)
[2021-12-28 01:00] VITALS: BP 120/56; PULSE 60; RESP 14; TEMP 36.5; O2SAT 98
[2021-12-28 06:13] LABS: Basophils Percent Auto 0.2 % (0.2-1.2); Eosinophils Percent Auto 0.2 % (0-4.4); Hematocrit 33.4 % (37.0-47.0); Hemoglobin 10.8 g/dL (12.0-15.0); Immature Granulocyte Absolute 0.07 K/mm3 (0.00-0.031); Immature Granulocyte Percent A 0.6 % (0-0.5); Lymphocytes Percent Auto 10.5 % (18.3-44.2); Mean Corpuscular HGB Conc 32.3 g/dl (32-36); Mean Corpuscular Volume 92.8 fl (80-100); Mean Platelet Volume 10.5 fl (7.4-10.4); Monocytes Absolute Auto 1.7 K/mm3 (0.1-0.6); Monocytes Percent Auto 13.5 % (2.6-8.5); Neutrophils Absolute Auto 9.3 K/mm3 (1.3-6.7); Platelet Count Result 190 k/mm3 (150-375); Red Cell Distribution Width 13.5 % (11.5-14.5); White Blood Count 12.4 K/mm3 (4.5-10.0)
[2021-12-28 06:19] VITALS: BP 126/56; PULSE 61; RESP 16; TEMP 36.4; O2SAT 100
[2021-12-28 06:23] LABS: Anion Gap 2 mmol/L (8-16); Blood Urea Nitrogen 20 mg/dL (7-17); Calcium 8.5 mg/dL (8.4-10.2); Carbon Dioxide 26 mmol/L (22-30); Chloride 106 mmol/L (98-107); Estimated CRCL calculation 47 ml/min; Estimated Glomerular Filt Rate 55; Glucose 109 mg/dL (65-110); Potassium 4.3 mmol/L (3.4-5.0); Sodium 134 mmol/L (137-145)
--- NOTE | 2021-12-28 08:44 | WPDANESPN ---
Anes - Prog Note Post-Op Date/Time: 12/28/21 08:44 Vital Signs: Last Vital Signs Temp 36.4 C 12/28/21 06:19 Pulse 61 12/28/21 06:19 Resp 16 12/28/21 06:19 BP 126/56 L 12/28/21 06:19 Pulse Ox 100 12/28/21 06:19 O2 Del Method Room Air 12/28/21 08:00 O2 Flow Rate 5 12/27/21 10:29 Pain Score (VAS): 0 I/O: Intake & Output 12/27/21 12/28/21 12/28/21 23:59 07:59 15:59 Intake Total 240 1400 Balance 240 1400 Laboratory Tests 12/28/21 05:51 12/28/21 05:51 12/27/21 12/28/21 12/28/21 12:15 05:51 05:51 WBC 12.4 H RBC 3.60 L Hgb 12.0 10.8 L Hct 37.4 33.4 L MCV 92.8 MCH 30.0 MCHC 32.3 RDW 13.5 Plt Count 190 MPV 10.5 H Immature Gran % (Auto) 0.6 H Neut % (Auto) 75.0 H Lymph % (Auto) 10.5 L [place] % (Auto) 13.5 H Eos % (Auto) 0.2 Baso % (Auto) 0.2 Lymph # (Auto) 1.30 [place] # (Auto) 1.7 H Eos # (Auto) 0.0 Baso # (Auto) 0.0 Abs Immat Gran (auto) 0.07 H Absolute Neuts (auto) 9.3 H Absolute Nucleated RBC 0.0 Nucleated RBC % 0.0 Sodium 134 L Potassium 4.3 Chloride 106 Carbon Dioxide 26 Anion Gap 2 L BUN 20 H Creatinine 1.00 Estim Creat Clear Calc 47 Estimated GFR 55 L Glucose 109 Calcium 8.5 Patient Feedback: Patient satisfied with anesthetic care.
[2021-12-28] MEDS: ESCITALOPRAM OXALATE 10 MG TABLET 20 MG PO (09:08)
[2021-12-28] MEDS: ASPIRIN 325 MG ENTERIC TABLET PO (09:08)
[2021-12-28] MEDS: polyethylene glycoL 3350 17 GM POWD.PACK PO (09:08)
[2021-12-28] MEDS: LORATADINE 10 MG TABLET PO (09:08)
[2021-12-28] MEDS: busPIRone HCL 5 MG TABLET PO (09:08)
[2021-12-28] MEDS: CHOLECALCIFEROL 1,000 UNITS TABLET 2000 UNITS PO (09:08)
[2021-12-28 09:09] VITALS: PULSE 65
[2021-12-28] MEDS: OPTI-GEN TAB 1 TABLET PO (09:09)
[2021-12-28] MEDS: carvediloL 6.25 MG TABLET PO (09:09)
[2021-12-28] MEDS: CYANOCOBALAMIN 500 MCG TABLET 2500 MCG PO (09:09)
[2021-12-28] MEDS: SENNA/DOCUSATE SODIUM TABLET 2 TAB PO ×2 (09:09→17:18)
--- NOTE | 2021-12-28 09:40 | PM.PNORT ---
Progress Note: A&P Assessment and Plan (1) S/P total hip arthroplasty: Code(s): Z96.649 - Presence of unspecified artificial hip joint Status: Acute Assessment and Plan: POD #1 : RIGHT JUAN Continue PT/OT. WBAT. Walker. HIGH FALL RISK. Continue pain control. Ice hip. Protect skin. DVT prophylaxis with Aspirin. SCDs. Incentive Spirometry Use reviewed. Monitor Dressing. Change prior to discharge. Bowel Regimen. Dispo: Home with Home Health pending progress with PT/OT Plan Reviewed postoperative radiographs, labs and exam with attending MD and patient's surgeon, Dr. Dunlap. No further recommendations at this time. Subjective Subjective Date/Time Seen: 12/28/21 09:40 Post Op day: 1 Principal diagnosis: Right Hip DJD Interval history: POD #1: Right JUAN Pain well controlled. Increased pain when moving OOB. No other complaints. Review of Systems Review of Systems: All systems reviewed & are unremarkable except as noted in HPI and below Constitutional: Constitutional: Denies chills, Denies fever(s), Denies headache(s), Denies lethargy and Reports weakness ENT: Denies headache(s) Cardiovascular: Cardiovascular: Denies chest pain, Denies diaphoresis, Denies lightheadedness, Denies palpitations, Denies dyspnea and Denies dyspnea on exertion Respiratory: Respiratory: Denies cough, Denies dyspnea and Denies dyspnea on exertion Gastrointestinal: Gastrointestinal: Denies constipation, Denies diarrhea, Denies nausea and Denies vomiting Genitourinary: Genitourinary: Reports urinary frequency, Denies dysuria and Denies urinary hesitancy Musculoskeletal: Musculoskeletal: Reports joint swelling (Right Hip ) and Reports limited range of motion (Right Hip due to recent surgery ) Neurologic: Denies headache(s) and Reports weakness Endocrine: Endocrine: Denies palpitations Exam Const: General: comfortable and no acute distress Resp: Effort & Inspection: normal respiratory effort Cardio: Rate: regular rate Rhythm: regular rhythm GI: Inspection: non-distended Skin: General skin exam: normal color Other: Incision right hip c/d/i. Surrounding tissue without redness/warmth. Mild swelling consistent with recent surgery. No drainage. Neuro: Cognition (Neuro): normal cognition Speech: normal speech Extrem: Right lower extremity: normal to inspection, normal capillary refill, hip/thigh Details: tenderness Location: of the hip (Thigh soft ) Location: laterally and anteriorly, swelling Location: at the hip, abnormal ROM (limited consistent with recent surgery ) Details: pain with active ROM during and pain with passive ROM during and other (Incision c/d/i. ); no deformity and no unusual warmth, knee Details: normal to inspection; no tenderness and no swelling, lower leg (Negative Steffi's Sign ) Details: normal to inspection and no edema; no tenderness, ankle (+ankle dorsiflexion/plantarflexion) Details: normal to inspection and no edema; no tenderness, no swelling and no ecchymosis and foot Details: normal capillary refill, toes with normal ROM, vascular exam Details: dorsalis pedis pulse present and motor-sensory exam Details: light-touch normal; no tenderness Objective Data Vital Signs Vital Signs: Vital Signs - 24 hr 12/27/21 09:52 12/27/21 10:08 12/27/21 10:22 Temperature 36.6 C Pulse Rate 68 67 67 Respiratory Rate 13 17 15 Blood Pressure 104/59 L 156/75 H 173/76 H Pulse Oximetry 97 100 100 Oxygen Delivery Simple Face Mask Simple Face Mask Simple Face Mask Oxygen Flow Rate 5 5 5 12/27/21 10:29 12/27/21 10:36 12/27/21 10:51 Temperature Pulse Rate 58 L 56 L 56 L Respiratory Rate 17 14 14 Blood Pressure 153/69 H 162/71 H 117/89 Pulse Oximetry 100 97 96 Oxygen Delivery Simple Face Mask Room Air Room Air Oxygen Flow Rate 5 12/27/21 11:00 12/27/21 11:15 12/27/21 11:30 Temperature Pulse Rate 56 L 56 L 54 L Respiratory Rate 14 14 14 Blood Pressure 119/68 116/66 129/59 L
[2021-12-28 10:55] VITALS: BP 118/66; PULSE 63; RESP 16; TEMP 35.8; O2SAT 99
[2021-12-28 14:00] VITALS: BP 124/68; PULSE 55; RESP 16; TEMP 36.3; O2SAT 99
--- NOTE | 2021-12-28 14:03 | PCNSR ---
On 12/28/21, the student, Shikha Degroot, provided care and completed [facility] documentation on this patient. I have reviewed the student's documentation and agree with the findings.
--- NOTE | 2021-12-28 14:23 | PCNSR ---
On 12/28/21, the student, Harmony Tristan, provided care and completed [facility] documentation on this patient. I have reviewed the student's documentation and agree with the findings.
--- NOTE | 2021-12-28 16:04 | PM.DS ---
DS: Admitting Diagnosis Discharge Date 12/28/21 Admitting Diagnosis Right Hip DJD DS: Discharge Diagnosis Discharge Diagnosis (1) S/P total hip arthroplasty: Qualifiers: Laterality: right Qualified Code(s): Z96.641 - Presence of right artificial hip joint Code(s): Z96.649 - Presence of unspecified artificial hip joint Status: Acute Assessment and Plan: POD #1 : RIGHT JUAN Continue PT/OT. WBAT. Walker. HIGH FALL RISK. Continue pain control. Ice hip. Protect skin. DVT prophylaxis with Aspirin. SCDs. Incentive Spirometry Use reviewed. Monitor Dressing. Change prior to discharge. Bowel Regimen. Dispo: Home with Home Health pending progress with PT/OT Plan Reviewed postoperative radiographs, labs and exam with attending MD and patient's surgeon, Dr. Dunlap. No further recommendations at this time. DS: Summary Hospital Course Reason for hospitalization: Right JUAN Hospital Course: 71-year-old female admitted status post right total hip arthroplasty for postoperative medical management, pain control and mobilization with physical and occupational therapy. Patient progressed very well on postop day 1. She was deemed safe to be discharged home with home health. Her will also be available to care for the patient. Patient will follow-up in the outpatient clinical setting as previously scheduled. Reviewed discharge care instructions in depth with the patient. Reviewed activity precautions. Status at Discharge Functional status at discharge: uses cane/walker Overall status at discharge: patient is progressing back to baseline Time Spent with Patient Time attestation: Total time spent providing and/or coordinating discharge services: Exam Const: General: cooperative, healthy appearing, comfortable and no acute distress Orientation/consciousness: oriented to person, oriented to place and oriented to time HENMT: Head: normal to inspection and No palpable skull fracture present Ears: hearing grossly normal bilaterally Eyes: General: appearance normal, both eyes and all related structures Neck: Neck: normal visual inspection Chest: Chest palpation & inspection: normal inspection of the chest Resp: Effort & Inspection: normal respiratory effort Auscultation: clear to auscultation bilaterally Cardio: Rate: regular rate Rhythm: regular rhythm Heart sounds: S1 normal heart sound present and S2 normal heart sound present GI: Inspection: normal to inspection and non-distended Skin: General skin exam: normal color and no rashes or lesions noted Other: Incision right hip c/d/i. Surrounding tissue without redness/warmth. Mild swelling consistent with recent surgery. No drainage. Neuro: General: oriented to person, oriented to place and oriented to time Cognition (Neuro): normal cognition Speech: normal speech Extrem: Right lower extremity: normal to inspection, normal capillary refill, hip/thigh Details: tenderness Location: of the hip (Thigh soft ) Location: laterally and anteriorly, swelling Location: at the hip, abnormal ROM (limited consistent with recent surgery ) Details: pain with active ROM during Details: with ABduction, with flexion and to internal rotation and pain with passive ROM during Details: to flexion and to internal rotation and other (Incision c/d/i. ); no deformity and no unusual warmth, knee Details: normal to inspection; no tenderness and no swelling, lower leg (Negative Steffi's Sign ) Details: normal to inspection and no edema; no tenderness, ankle (+ankle dorsiflexion/plantarflexion) Details: normal to inspection and no edema; no tenderness, no swelling and no ecchymosis and foot Details: normal capillary refill, toes with normal ROM, vascular exam Details: dorsalis pedis pulse present and motor-sensory exam Details: light-touch normal; no tenderness Psych: Appearance: grossly normal and well kempt DS: Data Data Completed and Pending Labs on day of discharge:
== END 2021-12-28 17:51 | disposition home health service (06) ==
LOC: ANHSURGERY 06:03 → ANH2MED 13:13
PROVIDERS: PCP Family Medicine; Visit Provider Orthopaedic Surgery
PROC: (CPT 27130; principal; 2021-12-27 07:30)
DX: M16.11 Unilateral primary osteoarthritis, right hip (principal); M25.551 Pain in right hip; I48.91 Unspecified atrial fibrillation; F41.9 Anxiety disorder, unspecified; I10 Essential (primary) hypertension; E78.5 Hyperlipidemia, unspecified; E53.8 Deficiency of other specified B group vitamins; E55.9 Vitamin D deficiency, unspecified
CPT/HCPCS: 27130; 36415; 73502; 80048; 80307; 81001; 81003; 83036; 85014; 85018; 85025; 85610; 85730; 86850; 86900; 86901; 87081; 97110; 97116; 97161; 97165; 97530; 97535; A9270; C1713; C1776; J0171; J0690; J1100; J1885; J2270; J2405; J2704; J2795; J3010; J7120

== ENCOUNTER 2022-01-25 07:56 | Outpatient (RCR) | payer MEDICARE, SELFPAY ==
--- NOTE | 2022-01-25 09:16 | PTOPEVAL ---
Thank you for referring Gaviota Singh to [facility].? The patient is scheduled to be seen for therapy? 2x/week for 12 visits. Please review, sign, date and return this plan of care KELLY. I agree with and certify that the following plan of care is medically necessary. Referring Physician Date Admitting Provider: Attending Provider: Vern Dunlap MD Referring Provider: *PT Outpatient Evaluation Start: 01/25/22 06:58 Freq: Status: Active Protocol: Document 01/25/22 07:56 [facility] (Rec: 01/25/22 09:13 [facility] [id number]) Therapy Assessment Status Assessment Status Assessment Status Evaluation Outpatient Past Medical History Neurological History Hx Neurological Disorders No Significant History Cardiovascular History Hx Cardiac Disorders No Significant History Respiratory History Hx Respiratory Disorders No Significant History Gastrointestinal History Hx Appendectomy Yes: 2018 Hx Diverticulitis Yes Hx Gastroesophageal Reflux Disease Yes Hx Other Gastrointestinal Disorders Yes: CHRONIC CHOLECYSTITIS WITH CHOLELITHIASIS Genitourinary History Hx Genitourinary Disorders No Significant History Musculoskeletal History Hx Arthritis Yes: right hip Hx Other Musculoskeletal Disorders Yes: RT HIP DJD Hematological History Hx Anemia Yes: IN YOUTH Endocrine History Hx Endocrine Disorders No Significant History HEENT History Hx Sinus Problems Yes Integumentary History Hx Skin Disorders No Significant History Reproductive History Hx Endometriosis Yes Psychosocial History Hx Depression Yes Pain History Has Past Pain Affected Your Daily Life Yes: RT HIP Anesthesia History Hx Anesthesia Reactions No Significant History Evaluation Information Problem Diagnosis R JUAN Onset 12/27/21 Subjective Information Pt received R JUAN on 12/27/21. Query Text:As Reported By Patient/ Pt reports that pain begain in Family May 2021 with insidious onset . One day just found a lot of pain and difficulty with lifting her leg. told her her hip was bone on bone and they discussed surgery. Pt reports that pain is now better than before surgery. Pt reports pain when stepping down or turning a certain way with some soreness at night. Has been using a half a pain pill now and wants to fully
--- NOTE | 2022-03-13 11:10 | PTOPPROG ---
Assessment and note entered by Kristin Estrella DPT Evaluation Information Assessment Status Progress Diagnosis R JUAN Onset 12/27/2021 Subjective Information Pt arrived today without SPC and notes she is feeling pretty confident without it today. Her pain is minimal this date but notes that she still walks somewhat off. She does not feel quite ready yet to be done with PT. Assessment PT Clinical Summary Pt presents to physical therapy s/p R JUAN on 2021 with significant improvements in pain, strength, and range of motion since her initial evaluation. She still demonstrates an antalgic/ altered gait and demonstrates decreased R hip flexion and abduction strength. She will benefit from additional skilled PT to facilitate symptom relief, improve the aforementioned impairments, and return to functional and recreational activities. Plan of Care Treatment Frequency and 1x week for 6 visits Duration These treatments will address the objective and functional deficits as defined above. The patient will be advanced safely and appropriately in order for the patient to progress towards his/her prior level of function. Additional exercises will be introduced and as well as a comprehensive home exercise program upon discharge, if needed, ?to ensure carryover of functional gains achieved in the clinic. This treatment plan has been reviewed and agreement upon by the patient.
--- NOTE | 2022-04-05 13:17 | PTOPPROGNS ---
Assessment and note entered by Kristin Estrella DPT Evaluation Information Assessment Status Progress Diagnosis R JUAN Onset 12/27/2021 Subjective Information Pt was absent from the clinic for about 3 weeks due to being sick with COVID. She is doing better now but notes some increased fatigue. Pt reports that her hip is stiff especially when performing hip flexion. She can tell that her leg is making good improvements. She still feels reliant on her cane for balance when walking. Assessment PT Clinical Summary Pt returns to physical therapy after 3 weeks due to sickness from COVID. She luckily demonstrates either maintenance of her objective measurements or improvements. She is still limited in strength and ROM and will benefit from further PT to improve these impairments and return to full functional and recreational activities. Plan of Care PT Services Indicated Yes Treatment Frequency and 1x week for 4 visits Duration These treatments will address the objective and functional deficits as defined above. The patient will be advanced safely and appropriately in order for the patient to progress towards his/her prior level of function. Additional exercises will be introduced and as well as a comprehensive home exercise program upon discharge, if needed, ?to ensure carryover of functional gains achieved in the clinic. This treatment plan has been reviewed and agreement upon by the patient.
--- NOTE | 2022-05-10 10:40 | PTOPDC ---
Assessment and note entered by Kristin Estrella DPT Evaluation Information Assessment Status Discharge Diagnosis R JUAN Onset 12/27/2021 Subjective Information Pt reports that she continues to feel a lot better . Her main complaint at this point is her gait pattern and the stiffness she gets in her lateral hip. She hasn't been using her cane when walking. Reported Pain Level Pain Score 0: Self Report Assessment PT Clinical Summary Pt presents to PT s/p R JUAN on 12/27 and demonstrates significant improvements in gait pattern, strength, and ROM since her initial evaluation. She still demonstrates an antalgic gait and decreased hip flexion strength and mobility and she was educated on the importance of continuing her HEP independently and staying active to maintain her improvements with PT. She is to follow-up as needed with our clinic and her MD regarding her POC going forward.
== END 2022-05-10 17:14 | disposition home or self-care (01) ==
LOC: CHSPT 07:56
PROVIDERS: Visit Provider Orthopaedic Surgery
DX: Z96.641 Presence of right artificial hip joint (principal)
CPT/HCPCS: 97110; 97140; 97161; 97530

== ENCOUNTER 2022-11-28 10:53 | Outpatient (CLI) | payer MEDICARE, SELFPAY ==
--- NOTE | ~2022-11-28 | XR_ITS ---
Right Shoulder Technique: AP and scapular Y views were obtained. Clinical History: Pain Findings: No fracture or dislocation is seen. Osseous alignment is anatomic. There is mild AC joint d egenerative change. Glenohumeral joint is unremarkable. Soft tissues are unremarkable. Impression: No fracture or dislocation. Mild AC joint degenerative change. Reviewed, dictated and finalized at location . Impression: No fracture or dislocation. Mild AC joint degenerative change.
== END 2022-11-28 10:54 | disposition home or self-care (01) ==
LOC: CHSIMG 10:55
PROVIDERS: PCP Family Medicine; Visit Provider Physician Assistant Medical
DX: S49.90XA Unspecified injury of shoulder and upper arm, unspecified arm, initial encounter (principal)
CPT/HCPCS: 73030

== ENCOUNTER 2023-01-08 09:20 | Outpatient (CLI) | payer MEDICARE, SELFPAY ==
--- NOTE | ~2023-01-08 | XR_ITS ---
XR hip RT min 2V DATE: 01/08/2023 09:46 INDICATION: Right hip pain TECHNIQUE: AP and crosstable lateral views of right hip COMPARISON: 07/19/2022 right hip FINDINGS: Status post right total hip arthroplasty. Normal alignment at the right hip. No fracture or dislocation, periosteal reaction or bone destruction. IMPRESSION: Status post right total hip arthroplasty Reviewed, dictated and finalized at location L.
== END 2023-01-08 09:21 | disposition home or self-care (01) ==
LOC: CHSIMG 09:23
PROVIDERS: PCP Family Medicine; Visit Provider Orthopaedic Surgery
DX: M25.551 Pain in right hip (principal); Z96.641 Presence of right artificial hip joint
CPT/HCPCS: 73502

== ENCOUNTER 2023-02-23 12:43 | Outpatient (CLI) | payer MEDICARE, SELFPAY ==
--- NOTE | ~2023-02-23 | XR_ITS ---
Left Knee Technique: AP, lateral, and sunrise views were obtained. Clinical History: Pain Findings: No fracture or dislocation is seen. Osseous alignment is anatomic. There is mild degenerati ve spurring of the lateral joint line and patellofemoral compartment. Soft tissues are unremarkable. No joint effusion is seen. Impression: Mild degenerative change of the lateral and patellofemoral compartments. Reviewed, dictated and finalized at location M. Impression: Mild degenerative change of the lateral and patellofemoral compartments.
== END 2023-02-23 12:44 | disposition home or self-care (01) ==
LOC: CHSIMG 12:45
PROVIDERS: PCP Family Medicine; Visit Provider Family Medicine
DX: M25.562 Pain in left knee (principal)
CPT/HCPCS: 73564

== ENCOUNTER 2023-05-30 10:47 | Outpatient (CLI) | payer MEDICARE, SELFPAY ==
[2023-05-30 11:06] LABS: Basophils Absolute Auto 0.03 K/mm3 (0.00-0.10); Basophils Percent Auto 0.4 % (0.0-1.0); Eosinophils Absolute Auto 0.08 K/mm3 (0.02-0.50); Hematocrit 40.6 % (35.0-42.0); Hemoglobin 13.5 g/dL (11.7-13.8); Immature Granulocyte Absolute 0.03 K/mm3 (0.00-0.00); Immature Granulocyte Percent A 0.4 % (0.0-0.0); Lymphocytes Absolute Auto 1.45 K/mm3 (1.10-4.50); Lymphocytes Percent Auto 18.9 % (18.0-42.0); Mean Corpuscular HGB Conc 33.3 g/dL (32.0-36.0); Mean Corpuscular Hemoglobin 30.9 pg (27.0-31.0); Mean Corpuscular Volume 92.9 fL (78.0-102.0); Mean Platelet Volume 10.2 fl (9.2-11.8); Monocytes Absolute Auto 0.83 K/mm3 (0.10-0.90); Monocytes Percent Auto 10.8 % (2.0-11.0); Neutrophils Absolute Auto 5.2 K/mm3 (1.7-7.2); Neutrophils Percent Auto 68.5 % (50.0-70.0); Platelet Count Result 206 K/mm3 (150-420); Red Blood Count 4.37 M/mm3 (4.20-5.40); Red Cell Distribution Width 13.3 % (11.6-14.4); White Blood Count 7.7 K/mm3 (4.8-10.8)
[2023-05-30 12:04] LABS: Alanine Aminotransferase 21 U/L (14-59); Albumin Level 3.8 g/dL (3.4-5.0); Alkaline Phosphatase 55 U/L (46-116); Anion Gap 7 mmol/L (8-16); Aspartate Amino Transferase 11 U/L (15-37); Bilirubin,Total 0.7 mg/dL (0.00-1.00); Blood Urea Nitrogen 25 mg/dL (7-18); Calcium 9.1 mg/dL (8.5-10.1); Carbon Dioxide 27 mmol/L (21-32); Chloride 102 mmol/L (98-108); Cholesterol 224 mg/dL (0-200); Estimated Glomerular Filt Rate 51; Glucose 95 mg/dL (70-99); HDL Direct 66 mg/dL (40-60); LDL Cholesterol Calculated 135 mg/dL (<130); Osmolality Calculated 286 mOsm/kg (285-295); Potassium 4.1 mmol/L (3.5-5.1); Sodium 136 mmol/L (136-145); Total Protein 6.9 g/dL (6.4-8.2); Triglycerides 114 mg/dL (0-150)
[2023-05-30 12:31] LABS: Thyroid Stimulating Hormone Reflex 2.82 u/IU/mL (0.36-3.74)
== END 2023-05-30 10:48 | disposition home or self-care (01) ==
LOC: CHSLAB 10:49
PROVIDERS: PCP Family Medicine; Visit Provider Family Medicine
DX: I10 Essential (primary) hypertension (principal); N18.30 Chronic kidney disease, stage 3 unspecified; E78.2 Mixed hyperlipidemia; R53.83 Other fatigue
CPT/HCPCS: 36415; 80053; 80061; 84443; 85025

== ENCOUNTER 2023-12-07 10:33 | Outpatient (CLI) | payer MEDICARE, SELFPAY ==
[2023-12-07 11:02] LABS: Basophils Absolute Auto 0.03 K/mm3 (0.00-0.10); Basophils Percent Auto 0.5 % (0.0-1.0); Eosinophils Absolute Auto 0.31 K/mm3 (0.02-0.50); Eosinophils Percent Auto 5.3 % (1.0-6.0); Hematocrit 41.2 % (35.0-42.0); Hemoglobin 13.3 g/dL (11.7-13.8); Immature Granulocyte Absolute 0.01 K/mm3 (0.00-0.00); Immature Granulocyte Percent A 0.2 % (0.0-0.0); Lymphocytes Absolute Auto 1.65 K/mm3 (1.10-4.50); Lymphocytes Percent Auto 28.2 % (18.0-42.0); Mean Corpuscular HGB Conc 32.3 g/dL (32-36); Mean Platelet Volume 10.1 fl (9.2-11.8); Monocytes Absolute Auto 0.73 K/mm3 (0.10-0.90); Monocytes Percent Auto 12.5 % (2.0-11.0); Neutrophils Absolute Auto 3.13 K/mm3 (1.70-7.20); Neutrophils Percent Auto 53.3 % (50.0-70.0); Platelet Count Result 205 K/mm3 (150-420); Red Blood Count 4.58 M/mm3 (4.20-5.40); White Blood Count 5.9 K/mm3 (4.8-10.8)
[2023-12-07 11:33] LABS: Alanine Aminotransferase 22 U/L (14-59); Albumin Level 3.3 g/dL (3.4-5.0); Alkaline Phosphatase 63 U/L (46-116); Anion Gap 9 mmol/L (4-12); Aspartate Amino Transferase 20 U/L (15-37); Bilirubin,Total 0.4 mg/dL (0.00-1.00); Blood Urea Nitrogen 23 mg/dL (7-18); Calcium 9.3 mg/dL (8.5-10.1); Carbon Dioxide 25 mmol/L (21-32); Chloride 105 mmol/L (98-108); Cholesterol 157 mg/dL (0-200); Estimated Glomerular Filt Rate 59; Glucose 97 mg/dL (70-99); HDL Direct 57 mg/dL (40-60); LDL Cholesterol Calculated 77 mg/dL (<130); Osmolality Calculated 291 mOsm/kg (285-295); Potassium 4.3 mmol/L (3.5-5.1); Sodium 139 mmol/L (136-145); Total Protein 7.5 g/dL (6.4-8.2); Triglycerides 114 mg/dL (0-150)
[2023-12-07 12:16] LABS: Thyroid Stimulating Hormone Reflex 2.73 u/IU/mL (0.36-3.74)
[2023-12-07 15:38] LABS: Appearance Urine Clear (Clear); Bilirubin Urine Negative (Negative); Blood Urine 1+ (Negative); Color Urine Light Yellow (Yellow); Glucose Urine UA Negative (Negative); Ketones Urine Negative (Negative); Leukocyte Esterase Ur Negative LEU/UL (Negative); Nitrate Urine Negative (Negative); Protein Urine Negative (Negative); Specific Grav Ur <= 1.005 (1.010-1.020); Urobilinogen Urine 0.2 mg/dL (0.2-1.0)
[2023-12-07 16:10] LABS: Add Urine Microscopic? YES; RBC Urine None seen /hpf (0-2)
== END 2023-12-07 10:34 | disposition home or self-care (01) ==
LOC: CHSLAB 10:35
PROVIDERS: PCP Family Medicine; Visit Provider Family Medicine
DX: N18.30 Chronic kidney disease, stage 3 unspecified (principal); E78.2 Mixed hyperlipidemia; R53.83 Other fatigue
CPT/HCPCS: 36415; 80053; 80061; 81001; 84443; 85025

== ENCOUNTER 2023-12-13 17:27 | Outpatient (CLI) | payer MEDICARE, SELFPAY ==
[2023-12-13 17:35] LABS: Appearance Urine Clear (Clear); Bilirubin Urine Negative (Negative); Blood Urine 1+ (Negative); Color Urine Yellow (Yellow); Glucose Urine UA Negative (Negative); Ketones Urine Negative (Negative); Leukocyte Esterase Ur Trace LEU/UL (Negative); Nitrate Urine Negative (Negative); Protein Urine Negative (Negative); Specific Grav Ur 1.015 (1.010-1.020); Urobilinogen Urine 0.2 mg/dL (0.2-1.0)
[2023-12-13 17:43] LABS: Add Urine Microscopic? YES; Bacteria Urine Trace /hpf; RBC Urine 0-2 /hpf (0-2); Squamous Epithelial Cell Urine Few /hpf (Few); WBC Urine 0-3 /hpf (0-3)
== END 2023-12-13 17:28 | disposition home or self-care (01) ==
PROVIDERS: PCP Family Medicine; Visit Provider Family Medicine
DX: R31.9 Hematuria, unspecified (principal)
CPT/HCPCS: 81001

== ENCOUNTER 2024-07-23 10:19 | Outpatient (CLI) | payer MEDICARE, SELFPAY ==
[2024-07-23 11:07] LABS: Basophils Absolute Auto 0.04 K/mm3 (0.00-0.10); Basophils Percent Auto 0.8 % (0.0-1.0); Eosinophils Absolute Auto 0.21 K/mm3 (0.02-0.50); Eosinophils Percent Auto 3.9 % (1.0-6.0); Hematocrit 43.2 % (35.0-42.0); Hemoglobin 13.8 g/dL (11.7-13.8); Immature Granulocyte Absolute 0.03 K/mm3 (0.00-0.00); Immature Granulocyte Percent A 0.6 % (0.0-0.0); Lymphocytes Absolute Auto 1.88 K/mm3 (1.10-4.50); Lymphocytes Percent Auto 35.3 % (18.0-42.0); Mean Corpuscular HGB Conc 31.9 g/dL (32-36); Mean Corpuscular Hemoglobin 28.8 pg (27.0-31.0); Mean Corpuscular Volume 90.2 fL (78.0-102.0); Mean Platelet Volume 10.7 fl (9.2-11.8); Monocytes Absolute Auto 0.63 K/mm3 (0.10-0.90); Monocytes Percent Auto 11.8 % (2.0-11.0); Neutrophils Absolute Auto 2.54 K/mm3 (1.70-7.20); Neutrophils Percent Auto 47.6 % (50.0-70.0); Platelet Count Result 216 K/mm3 (150-420); Red Blood Count 4.79 M/mm3 (4.20-5.40); Red Cell Distribution Width 13.6 % (11.6-14.4); White Blood Count 5.3 K/mm3 (4.8-10.8)
--- OUTSIDE RECORDS SUMMARY | 2024-07-23 11:11 | XMS_ITS | Patient Health Record ---
Author Organization [facility] Address [address] [place], [place] [id number] Care Team Providers Care Salvage Cutter Name Role Phone CARON PARSON Unavailable [phone] Elena Auguste Unavailable Unavailable ANNEL NEWMAN Unavailable [phone] Allergies Allergen (clinical drug ingredient) Drug/Non Drug Allergy documented on EMR Reaction Allergy Type Onset Date Status Wellbutrin Unknown Drug Allergy Active Contrast Allergy PreMed Pack Unknown Drug Allergy Active Substance with sulfonamide structure and antibacterial mechanism of action (substance) Sulfa Antibiotics Unknown Drug Allergy Active Reason For Referral No Information Vital Signs Height-cm 162.56 cm 01/16/2024 Weight-kg 88 kg 01/16/2024 Height 64 in 01/16/2024 Weight 194 lbs 01/16/2024 BMI 33.3 kg/m2 01/16/2024 Encounters Encounter Location Date Provider Diagnosis [facility] [address] [place], [place] [id number] 01/16/2024 ANNEL NEWMAN Unspecified atherosclerosis of [place] arteries of extremities, bilateral legs I70.203 ; Tinea unguium B35.1 ; Other hammer toe(s) (acquired), right foot M20.41 ; Other hammer toe(s) (acquired), left foot M20.42 ; Flat foot [pes planus] (acquired), right foot M21.41 ; Flat foot [pes planus] (acquired), left foot M21.42 ; Pain in right toe(s) M79.674 and Pain in left toe(s) M79.[address] [id number] 03/19/2024 ANNEL PATY Unspecified atherosclerosis of [place] arteries of extremities, bilateral legs I70.203 ; Tinea unguium B35.1 ; Other hammer toe(s) (acquired), right foot M20.41 ; Other hammer toe(s) (acquired), left foot M20.42 ; Flat foot [pes planus] (acquired), right foot M21.41 ; Flat foot [pes planus] (acquired), left foot M21.42 ; Pain in right toe(s) M79.674 and Pain in left toe(s) M79.[address] [id number] 05/28/2024 ANNEL GUALLPAMARYJANE Unspecified atherosclerosis of [place] arteries of extremities, bilateral legs I70.203 ; Tinea unguium B35.1 ; Other hammer toe(s) (acquired), right foot M20.41 ; Other hammer toe(s) (acquired), left foot M20.42 ; Flat foot [pes planus] (acquired), right foot M21.41 ; Flat foot [pes planus] (acquired), left foot M21.42 ; Pain in right toe(s) M79.674 and Pain in left toe(s) M79.675 Assessments Encounter Date Diagnosis (ICD Code) Assessment Notes Treatment Notes Treatment Clinical Notes Section Notes 01/16/2024 Tinea unguium (ICD-10 - B35.1) Aseptic debridement of elongated thickened nails x 10 using sterile nippers, nails were debrided in length and thickness by 30% utilizing a nail nipper without incident. The patient was educated regarding all treatment options that include topical and oral antifungal treatments. I discussed the options of taking a sample of the nail to confirm diagnosis. Nail clippings were not sent for pathology analysis. The patient was educated why and how the fungal infection evolved in their feet and the patient was given information regarding how to prevent further infection. The patient was told to keep feet dry and change socks. The patient was told to be careful with old shoes and excessive sweating. The patient was educated regarding both OTC and prescription treatments. 01/16/2024 Unspecified atherosclerosis of [place] arteries of extremities, bilateral legs (ICD-10 - I70.203) Patient educated on risks and aggravating factors of PVD, including conservative treatment options such as a diet and exercise regimen to aid in slowing progression of vascular disease 03/19/2024 Tinea unguium (ICD-10 - B35.1) Aseptic debridement of elongated thickened nails x 10 using sterile nippers, nails were debrided in length and thickness by 30% utilizing a nail nipper without incident. The patient was educated regarding all treatment options that include topical and oral antifungal treatments. I discussed the options of taking a sample of the nail to confirm diagnosis. Nail clippings were not sent for pathology analysis. The patient was educated why and how the fungal infection evolved in their feet and the patient was given information regarding how to prevent further infection. The patient was told to keep feet dry and change socks. The patient was told to be careful with old shoes and excessive sweating. The patient was educated regarding both OTC and prescription treatments. 03/19/2024 Unspecified atherosclerosis of [place] arteries of extremities, bilateral legs (ICD-10 - I70.203) Patient educated on risks and aggravating factors of PVD, including conservative treatment options such as a diet and exercise regimen to aid in slowing progression of vascular disease 05/28/2024 Tinea unguium (ICD-10 - B35.1) Aseptic debridement of elongated thickened nails x 10 using sterile nippers, nails were debrided in length and thickness by 30% utilizing a nail nipper without incident. The patient was educated regarding all treatment options that include topical and oral antifungal treatments. I discussed the options of taking a sample of the nail to confirm diagnosis. Nail clippings were not sent for pathology analysis. The patient was educated why and how the fungal infection evolved in their feet and the patient was given information regarding how to prevent further infection. The patient was told to keep feet dry and change socks. The patient was told to be careful with old shoes and excessive sweating. The patient was educated regarding both OTC and prescription treatments. 05/28/2024 Unspecified atherosclerosis of [place] arteries of extremities, bilateral legs (ICD-10 - I70.203) Patient educated on risks and aggravating factors of PVD, including conservative treatment options such as a diet and exercise regimen to aid in slowing progression of vascular disease 05/28/2024 Other hammer toe(s) (acquired), right foot (ICD-10 - M20.41) The patient was educated regarding how to mechanically stabilize their deformity. The patient was given education about shoe recommendations specific for the condition. The patient was educated about custom orthotics and how appropriate shoes and orthotics can prevent further worsening of the deformity. The patient was educated about how bad shoe habits can worsen the condition. NSAIDS, P.T., injections and other conservative treatments were discussed. Both surgical and non surgical treatments were discussed, but conservative options were emphasized. 03/19/2024 Other hammer toe(s) (acquired), right foot (ICD-10 - M20.41) The patient was educated regarding how to mechanically stabilize their deformity. The patient was given education about shoe recommendations specific for the condition. The patient was educated about custom orthotics and how appropriate shoes and orthotics can prevent further worsening of the deformity. The patient was educated about how bad shoe habits can worsen the condition. NSAIDS, P.T., injections and other conservative treatments were discussed. Both surgical and non surgical treatments were discussed, but conservative options were emphasized. 01/16/2024 Other hammer toe(s) (acquired), right foot (ICD-10 - M20.41) The patient was educated regarding how to mechanically stabilize their deformity. The patient was given education about shoe recommendations specific for the condition. The patient was educated about custom orthotics and how appropriate shoes and orthotics can prevent further worsening of the deformity. The patient was educated about how bad shoe habits can worsen the condition. NSAIDS, P.T., injections and other conservative treatments were discussed. Both surgical and non surgical treatments were discussed, but conservative options were emphasized. 01/16/2024 Other hammer toe(s) (acquired), left foot (ICD-10 - M20.42) 03/19/2024 Other hammer toe(s) (acquired), left foot (ICD-10 - M20.42) 05/28/2024 Other hammer toe(s) (acquired), left foot (ICD-10 - M20.42) 05/28/2024 Flat foot [pes planus] (acquired), right foot (ICD-10 - M21.41) Patient educated on etiology and treatment options for flexible flat foot deformity. Educated patient on how a flexible flat foot deformity can in turn result in pathology such as hammer toe, bunions, equinus, neuromas. Recommend use of custom foot inserts to help alleviate plantar peak pressures and accomodate for digital deformity to feet. Continue with use of powerstep pinnacle inserts daily. 03/19/2024 Flat foot [pes planus] (acquired), right foot (ICD-10 - M21.41) Patient educated on etiology and treatment options for flexible flat foot deformity. Educated patient on how a flexible flat foot deformity can in turn result in pathology such as hammer toe, bunions, equinus, neuromas. Recommend use of custom foot inserts to help alleviate plantar peak pressures and accomodate for digital deformity to feet. The patient was dispensed and fitted with over the counter power step pinnacle arch supports. The patient was educated on their use and effect. All questions were answered. 01/16/2024 Flat foot [pes planus] (acquired), right foot (ICD-10 - M21.41) Patient educated on etiology and treatment options for flexible flat foot deformity. Educated patient on how a flexible flat foot deformity can in turn result in pathology such as hammer toe, bunions, equinus, neuromas. Recommend use of custom foot inserts to help alleviate plantar peak pressures and accomodate for digital deformity to feet. The patient was dispensed and fitted with over the counter power step pinnacle arch supports. The patient was educated on their use and effect. All questions were answered. 01/16/2024 Flat foot [pes planus] (acquired), left foot (ICD-10 - M21.42) 03/19/2024 Flat foot [pes planus] (acquired), left foot (ICD-10 - M21.42) 05/28/2024 Flat foot [pes planus] (acquired), left foot (ICD-10 - M21.42) 05/28/2024 Pain in right toe(s) (ICD-10 - M79.674) 03/19/2024 Pain in right toe(s) (ICD-10 - M79.674) 01/16/2024 Pain in right toe(s) (ICD-10 - M79.674) 01/16/2024 Pain in left toe(s) (ICD-10 - M79.675) 03/19/2024 Pain in left toe(s) (ICD-10 - M79.675) 05/28/2024 Pain in left toe(s) (ICD-10 - M79.675) Plan Of Treatment Next Appt Details Provider Name:CARON PARSON, 10:50:00 AM, [address] [place] [address], [phone], Insurance Providers Payer Name Payer Address Payer Phone Subscriber Number Group Number Insured Name Patient Relationship to Insured Coverage Start Date Coverage End Date [facility] [address] [address] [place] [id number] Gaviota Singh Self - patient is the insured
--- OUTSIDE RECORDS SUMMARY | 2024-07-23 11:11 | XMS_ITS | Continuity of Care Document ---
Author Organization [facility] Address [address] [place] [address] [address] [place] [address] Phone Care Team Providers Care Devops Architect Name Role Phone Rosa Srinivasan Unavailable Unavailable Procedures Procedure Date Eye Exam, New Patient Advance Directives Directive Yes / No Effective Date File Name No Information Encounters Encounter Description Practice Location Reason(s) For Visit Diagnoses Date Provider Providers Copied on Encounter [facility], [address], [place], [place], [id number], [place] tel:[phone] [facility] No Information [phone] Zarina Lee. [address], [place], [address], [place]. tel:[phone] Family History Family Member Type Diagnosis Age At Onset No Information Payers Payer name Insurance type Covered constitution party ID Authoriza tijerome(s) [facility] [id number] Social History Type Description Quantity Date Captured Comments Sex Female Smoking Status No Information Chief Complaint And Reason For Visit No Information Reason For Referral Reason For Referral No Information History Of Present Illness Encounter Date Complaint History Of Prese nt Illness No Information Functional Status Date Functional Assessmen t No Information Instructions Date Instruction Additional Infor mation No Information Assessments Type Assessment Date No Information Patient Care Teams Name Effective Dates (start - stop) Status Members No Information
--- OUTSIDE RECORDS SUMMARY | 2024-07-23 11:11 | XMS_ITS ---
Author Organization [facility] Address [address] [id number] Care Team Providers Care School Standards Coach Name Role Phone CARON APRSON Unavailable [phone] Elena Auguste Unavailable Unavailable ANNEL NEWMAN Unavailable [phone] REASON FOR VISIT *General care Encounters Encounter Location Date Provider Diagnosis [address] [id number] 03/19/2024 ANNEL NEWMAN Unspecified atherosclerosis of [place] arteries of extremities, bilateral legs I70.203 ; [...] Treatment Notes Treatment Clinical Notes Section Notes 03/19/2024 Unspecified atherosclerosis of [place] arteries of extremities, bilateral legs (ICD-10 - [...] regarding both OTC and prescription treatments. 03/19/2024 Other hammer toe(s) (acquired), right foot [...] were emphasized. 03/19/2024 Other hammer toe(s) (acquired), left foot (ICD-10 - M20.42) 03/19/2024 Flat foot [pes planus] (acquired), right [...] use and effect. All questions were answered. 03/19/2024 Flat foot [pes planus] (acquired), left foot (ICD-10 - M21.42) 03/19/2024 Pain in right toe(s) (ICD-10 - M79.674) 03/19/2024 Pain in left toe(s) (ICD-10 - M79.675) Plan Of Treatment Treatment Notes Assessment Notes Unspecified atherosclerosis of [place] arteries of extremities, bilateral legs Patient educated on risks and aggravating factors of PVD, including conservative treatment options such as a diet and exercise regimen to aid in slowing progression of vascular disease Tinea unguium Aseptic debridement of elongated thickened nails x [...] educated regarding both OTC and prescription treatments. Other hammer toe(s) (acquired), right fo ot The patient was educated regarding how to [...] were discussed, but conservative options were emphasized. Flat foot [pes planus] (acqu ired), right foot Patient educated on etiology and treatment options [...] use and effect. All questions were answered. Next Appt Details Follow Up: 3 Months, Reason: Provider Name:CARON PARSON, 10:50:00 AM, [address] [place] [address], [id number], Progress Notes * Brandi PALMER:1950 (73 yo F)Acc No.[id number]:03/19/2024 Patient:?Gaviota PALMER Provider:?ANNEL NEWMAN :1950???Age:73 Y???Sex:Female D ate:03/19/2024 Address:[address] [place], [place] [id number] Subjective: * Chief Complaints: * ???1. *General care. * HPI: ???HPI:?General care?Patient presents to the office for at risk foot care. Patient states that their nails are thickened, elongated and painful. Patient states that it is aggravated by shoe gear. Onset is gradual. Patient denies being diabetic., Patient denies taking blood thinners., Date last seen by Dr. Auguste was 09/2023., Initials mca.? * ROS:?General / Constitutional:?Patient denies?weakness.?Respiratory:?Patient denies?chronic cough, shortness of breath, sputum production.?Cardiovascular:?Patient denies?chest pain, history of [place], irregular heartbeat.?Musculoskeletal:?Patient complains of?arch pain, hammertoes.?Peripheral Vascular:?Patient denies?blanching of skin, cold extremities, decreased sensation in extremities.?Skin:?Patient complains of?nail changes.?Neurologic:?Patient denies?dizziness, gait abnormality, headache.? * Medical History:? Objective: * Vitals:? * Examination: ???Physical Examination: ???Vascular: Dorsalis Pedis pulse noted at 1/4 right foot and 1/4 left foot and Posterior Tibial pulse noted at 1/4 right foot and 1/4 left foot, Capillary refill times noted to be less than three seconds x ten, Temperature gradient noted to be warm to cool to bilateral foot, pedal hair present to bilateral foot and no varicosities are noted Dermatologic: there are no open lesions, no signs of active clinical infection, no erythema noted, no ecchymoses, nails are elongated thickened and dystrophic with subungual debris x ten Musculoskeletal: there is pain to palpation onto nail plate x ten, no calf pain noted bilaterally, arch height noted at 2/5 non-weight bearing bilaterally, first metatarsophalangeal joint range of motion 30 deg non-weight bearing bilaterally, flexible fifth digit hammer toe deformity noted to bilateral foot reducible with kelikian push up test Neurology: protective sensation intact to light touch bilateral digits one through five, vibratory sensation intact to first metatarsophalangeal joint bilaterally. Assessment: * Assessment: 1.?Tinea unguium - B35.1 (Pr imary)???2.?Unspecified atherosclerosis of [place] arteries of extremities, bilateral legs - I70.203???3.?Other hammer toe(s) (acquired), right foot - M20.41???4.?Other hammer toe(s) (acquired), left foot - M20.42???5.?Flat foot [pes planus] (acquired), right foot - M21.41???6.?Flat foot [pes planus] (acquired), left foot - M21.42???7.?Pain in right toe(s) - M79.674???8.?Pain in left toe(s) - M79.675??? Plan: * Treatment: 2.?Unspecified atheroscleros is of [place] arteries of extremities, bilateral legs? Notes: Patient educated on risks and aggravating factors of PVD, including conservative treatment options such as a diet and exercise regimen to aid in slowing progression of vascular disease ?? 3.?Other hammer toe(s) (acqu ired), right foot? Notes: The patient was educated regarding how to [...] were discussed, but conservative options were emphasized. ?? 4.?Flat foot [pes planus] (a cquired), right foot? Notes: Patient educated on etiology and treatment options [...] use and effect. All questions were answered. ?? * Follow Up:?3 Months * Billing Information: * Visit Code:? 77222 Office Visit, Est Pt., Level 3. * Procedure Codes:? * Sign off status: Completed true * Provider:JUANCHO NEWMAN Date:?03/19/2024 Generated for Jennifer stern/James/Roma on:?07/23/2024 11:11 AM DIRECTOR BIOLOGY History and Physical Notes * HPI (History of Present Illness) Category Sub-Category Detail Notes Category Not es HPI General care Patient presents to the office for at risk foot care. Patient states that their nails are thickened, elongated and painful. Patient states that it is aggravated by shoe gear. Onset is gradual. Patient denies being diabetic., Patient denies taking blood thinners., Date last seen by Dr. Auguste was 09/2023., Initials mca Examination Category Sub-Category Detail Notes Category Not es Physical Examination Vascular: Dorsalis Pedis pulse noted at 1/4 right foot and 1/4 left foot and Posterior Tibial pulse noted at 1/4 right foot and 1/4 left foot, Capillary refill times noted to be less than three seconds x ten, Temperature gradient noted to be warm to cool to bilateral foot, pedal hair present to bilateral foot and no varicosities are noted Dermatologic: there are no open lesions, no signs of active clinical infection, no erythema noted, no ecchymoses, nails are elongated thickened and dystrophic with subungual debris x ten Musculoskeletal: there is pain to palpation onto nail plate x ten, no calf pain noted bilaterally, arch height noted at 2/5 non-weight bearing bilaterally, first metatarsophalangeal joint range of motion 30 deg non-weight bearing bilaterally, flexible fifth digit hammer toe deformity noted to bilateral foot reducible with kelikian push up test Neurology: protective sensation intact to light touch bilateral digits one through five, vibratory sensation intact to first metatarsophalangeal joint bilaterally
--- OUTSIDE RECORDS SUMMARY | 2024-07-23 11:11 | XMS_ITS ---
Author Organization [facility] Address [address] [id number] Care Team Providers Care Associate Veterinarian Name Role Phone CARON PARSON Unavailable [phone] Elena Auguste Unavailable Unavailable ANNEL NEWMAN Unavailable [phone] Allergies Allergen (clinical drug ingredient) Drug/Non Drug Allergy documented on EMR Reaction Allergy Type Onset Date Status Wellbutrin Unknown Drug Allergy Active Contrast Allergy PreMed Pack Unknown Drug Allergy Active Substance with sulfonamide structure and antibacterial mechanism of action (substance) Sulfa Antibiotics Unknown Drug Allergy Active REASON FOR VISIT *General care Encounters Encounter Location Date Provider Diagnosis [address] [id number] 05/28/2024 ANNEL NEWMAN Unspecified atherosclerosis of [place] arteries of extremities, bilateral legs I70.203 ; [...] Treatment Notes Treatment Clinical Notes Section Notes 05/28/2024 Unspecified atherosclerosis of [place] arteries of extremities, bilateral legs (ICD-10 - [...] regarding both OTC and prescription treatments. 05/28/2024 Other hammer toe(s) (acquired), right foot [...] were discussed, but conservative options were emphasized. 05/28/2024 Other hammer toe(s) (acquired), left foot [...] with use of powerstep pinnacle inserts daily. 05/28/2024 Flat foot [pes planus] (acquired), left foot (ICD-10 - M21.42) 05/28/2024 Pain in right toe(s) (ICD-10 - M79.674) 05/28/2024 Pain in left toe(s) (ICD-10 - M79.675) Plan Of Treatment Treatment Notes Assessment Notes Unspecified atherosclerosis of [place] arteries of extremities, bilateral legs Patient educated [...] with use of powerstep pinnacle inserts daily. Next Appt Details Follow Up: 3 Months, Reason: Provider Name:CARON PARSON, 10:50:00 AM, [address] [place] [address], [phone], Progress Notes * Brandi PALMER:1950 (73 yo F)Acc No.[id number]:05/28/2024 Patient:?Gaviota PALMER Provider:?ANNEL NEWMAN :1950???Age:73 Y???Sex:Female D ate:05/28/2024 Address:[address] [place], [place] [id number] Subjective: * Chief Complaints: * ???1. *General care. * HPI: ???HPI:?General care?Patient presents to the office for at risk foot care. Patient states that their nails are thickened, elongated and painful. Patient states that it is aggravated by shoe gear. Onset is gradual. Patient denies being diabetic., Patient denies taking blood thinners., Date last seen by Dr. Auguste was 11/2023., Initials mca.? * ROS:?General / Constitutional:?Patient denies?weakness.?Respiratory:?Patient denies?chronic cough, shortness of breath, sputum production.?Cardiovascular:?Patient denies?chest pain, history of [place], irregular heartbeat.?Musculoskeletal:?Patient complains of?arch pain, hammertoes.?Peripheral Vascular:?Patient denies?blanching of skin, cold extremities, decreased sensation in extremities.?Skin:?Patient complains of?nail changes.?Neurologic:?Patient denies?dizziness, gait abnormality, headache.? * Medical History:? * Allergies:?Sulfa Antibiotics , Contrast Allergy PreMed Pack, Wellbutrin. Objective: * Vitals:? * Examination: ???Physical Examination: [...] unguium - B35.1 (Pr imary)???2.?Unspecified atherosclerosis of [place] arteries of extremities, bilateral legs - I70.203???3.?Other hammer toe(s) (acquired), right foot - M20.41???4.?Other hammer toe(s) (acquired), left foot - M20.42???5.?Flat foot [pes planus] (acquired), right foot - M21.41???6.?Flat foot [pes planus] (acquired), left foot - M21.42???7.?Pain in right toe(s) - M79.674???8.?Pain in left toe(s) - M79.675??? Plan: * Treatment: 2.?Unspecified atheroscleros is of [place] arteries of extremities, bilateral legs? Notes: Patient [...] with use of powerstep pinnacle inserts daily. ?? * Follow Up:?3 Months * Billing Information: * Visit Code:? 75113 Office Visit, Est Pt., Level 3. * Procedure Codes:? * FIC MAINTENANCE SUPERVISOR Sign off status: Completed true * Provider:JUANCHO NEWMAN Date:?05/28/2024 Generated for Jennifer stern/James/Roma on:?07/23/2024 11:11 AM TRAFFIC MAINTENANCE SUPERVISOR History and Physical Notes * HPI (History [...] Date last seen by Dr. Auguste was 11/2023., Initials mca Examination Category Sub-Category Detail Notes [...]
--- OUTSIDE RECORDS SUMMARY | 2024-07-23 11:11 | XMS_ITS | Clinical Summary ---
Author Organization [facility] Address [facility]. 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 Gender Identity Not on file Sexual Orientation Not on file Plan of Treatment Health Maintenance Due Date Last Done Comments Colorectal Cancer Screening Colonoscopy (10 Years) 1950 Hepatitis C 1968 DTaP, Tdap and Td Vaccines ( 1 - Tdap) 1969 Mammogram Screening 1990 Zoster Vaccines (1 of 2) 2000 Dexa Scan (General) 12/12/2015 Pneumococcal Vaccine: 65+ Ye ars (1 of 1 - PCV) 12/12/2015 COVID-19 Vaccine (2023-2 5 season) 2024 Influenza Adult (#1) 2024 RSV Immunization or 60+ Years (1 - 1-dose 75+ series) 2025 Meningococcal B Vaccine Aged Out No l onger eligible based on patient's age to complete this topic Meningococcal Vaccine Aged Out No carmela lexi eligible based on patient's age to complete this topic RSV Immunizations Under 20 Months Aged Out No longer eligible based on patient's age to complete this topic
[2024-07-23 11:38] LABS: Hemoglobin A1C 5.2 % (<5.7)
[2024-07-23 11:53] LABS: Alanine Aminotransferase 20 U/L (14-59); Albumin Level 3.7 g/dL (3.4-5.0); Alkaline Phosphatase 66 U/L (46-116); Anion Gap 8 mmol/L (4-12); Aspartate Amino Transferase 12 U/L (15-37); Bilirubin,Total 0.6 mg/dL (0.00-1.00); Blood Urea Nitrogen 21 mg/dL (7-18); Calcium 9.4 mg/dL (8.5-10.1); Carbon Dioxide 27 mmol/L (21-32); Chloride 105 mmol/L (98-108); Cholesterol 179 mg/dL (0-200); Estimated Glomerular Filt Rate 50; Glucose 101 mg/dL (70-99); HDL Direct 53 mg/dL (40-60); LDL Cholesterol Calculated 88 mg/dL (<130); Osmolality Calculated 293 mOsm/kg (285-295); Potassium 4.3 mmol/L (3.5-5.1); Sodium 140 mmol/L (136-145); Total Protein 7.1 g/dL (6.4-8.2); Triglycerides 191 mg/dL (0-150)
[2024-07-23 12:26] LABS: Thyroid Stimulating Hormone Reflex 4.54 u/IU/mL (0.36-3.74)
[2024-07-23 13:01] LABS: Free T4 Free Thyroxine Reflex 0.94 ng/dL (0.76-1.46)
== END 2024-07-23 10:20 | disposition home or self-care (01) ==
LOC: CHSLAB 10:22
PROVIDERS: PCP Family Medicine; Visit Provider Family Medicine
DX: E78.2 Mixed hyperlipidemia (principal); Z13.1 Encounter for screening for diabetes mellitus; R53.83 Other fatigue; N18.30 Chronic kidney disease, stage 3 unspecified
CPT/HCPCS: 36415; 80053; 80061; 83036; 84439; 84443; 85025

== ENCOUNTER 2024-12-29 10:00 | Outpatient (CLI) | payer MEDICARE, SELFPAY ==
--- OUTSIDE RECORDS SUMMARY | 2024-12-29 10:04 | XMS_ITS | Patient Health Record ---
Author Organization [facility] Address [address] [place], [place] [id number] Care Team Providers Care Stripping Shovel Oiler Name Role Phone DELIO CARON Unavailable [phone] Elena Auguste Unavailable Unavailable ANNEL NEWMAN Unavailable [phone] JEYSON LIMON Unavailable [phone] Allergies Allergen (clinical drug ingredient) Drug/Non Drug Allergy documented on EMR Reaction Allergy Type Onset Date Status Wellbutrin Unknown Drug Allergy Active Contrast Allergy PreMed Pack Unknown Drug Allergy Active Substance with sulfonamide structure and antibacterial mechanism of action (substance) Sulfa Antibiotics Unknown Drug Allergy Active Reason For Referral No Information Vital Signs Height-cm 162.56 cm 10/22/2024 Weight-kg 88 kg 10/22/2024 Height 64 in 10/22/2024 Weight 194 lbs 10/22/2024 BMI 33.3 kg/m2 10/22/2024 Encounters Encounter Location Date Provider Diagnosis [facility] [address] [place], [place] [id number] 07/30/2024 CARON PARSON Tinea unguium B35.1 ; Atherosclerosis of [place] arteries of extremities with intermittent claudication, bilateral legs I70.213 ; Pain in right foot M79.671 and Pain in left toe(s) M79.675 [facility] [address] [place], [place] [id number] 01/16/2024 ANNEL NEWMAN Unspecified atherosclerosis of [place] arteries of extremities, bilateral legs I70.203 ; Tinea unguium B35.1 ; Other hammer toe(s) (acquired), right foot M20.41 ; Other hammer toe(s) (acquired), left foot M20.42 ; Flat foot [pes planus] (acquired), right foot M21.41 ; Flat foot [pes planus] (acquired), left foot M21.42 ; Pain in right toe(s) M79.674 and Pain in left toe(s) M79.[address] [id number] 03/19/2024 ANNEL NEWMAN Unspecified atherosclerosis of [place] arteries of extremities, bilateral legs I70.203 ; Tinea unguium B35.1 ; Other hammer toe(s) (acquired), right foot M20.41 ; Other hammer toe(s) (acquired), left foot M20.42 ; Flat foot [pes planus] (acquired), right foot M21.41 ; Flat foot [pes planus] (acquired), left foot M21.42 ; Pain in right toe(s) M79.674 and Pain in left toe(s) M79.[address] [id number] 05/28/2024 ANNEL NEWMAN Unspecified atherosclerosis of [place] arteries of extremities, bilateral legs I70.203 ; Tinea unguium B35.1 ; Other hammer toe(s) (acquired), right foot M20.41 ; Other hammer toe(s) (acquired), left foot M20.42 ; Flat foot [pes planus] (acquired), right foot M21.41 ; Flat foot [pes planus] (acquired), left foot M21.42 ; Pain in right toe(s) M79.674 and Pain in left toe(s) M79.[address] [id number] 10/22/2024 CARON PARSON Tinea unguium B35.1 ; Hallux valgus (acquired), right foot M20.11 and Hallux valgus (acquired), left foot M20.12 Assessments Encounter Date Diagnosis (ICD Code) Assessment [...] and prescription treatments. 01/16/2024 Unspecified atherosclerosis of [place] arteries of extremities, bilateral legs (ICD-10 - [...] and prescription treatments. 03/19/2024 Unspecified atherosclerosis of [place] arteries of extremities, bilateral legs (ICD-10 - [...] and prescription treatments. 05/28/2024 Unspecified atherosclerosis of [place] arteries of extremities, bilateral legs (ICD-10 - I70.203) Patient educated on risks and aggravating factors of PVD, including conservative treatment options such as a diet and exercise regimen to aid in slowing progression of vascular disease 07/30/2024 Tinea unguium (ICD-10 - B35.1) FUNGAL TOENAILS: Discussed various treatment options for fungal toenails including debridement, topical antifungals, oral antifungals, toenail avulsion, or toenail matrixectomy. NAIL DEBRIDEMENT: Nails 1-5 Bilateral were debrided extensively with nail nippers and emery board, reducing length and girth to pink healthy tissue with any subungual debris and necrotic tissue removed 07/30/2024 Atherosclerosis of [place] arteries of extremities with intermittent claudication, bilateral legs (ICD-10 - I70.213) 10/22/2024 Tinea unguium (ICD-10 - B35.1) FUNGAL TOENAILS: Discussed various treatment options for fungal toenails including debridement, topical antifungals, oral antifungals, toenail avulsion, or toenail matrixectomy. NAIL DEBRIDEMENT: Nails 1-5 Bilateral were debrided extensively with nail nippers and emery board, reducing length and girth to pink healthy tissue with any subungual debris and necrotic tissue removed 10/22/2024 Hallux valgus (acquired), right foot (ICD-10 - M20.11) Bunion: Discussed various treatments with the patient regarding hallux abducto valgus deformity. Discussed conservative care consisting of padding, wider shoes, anti-inflammatorie s, and orthotics. Discussed surgical treatment options and answered all questions about the intra-operative and post-operative treatment course. Padding: Application of accomodative padding to offload pressure from area. 10/22/2024 Hallux valgus (acquired), left foot (ICD-10 - M20.12) 07/30/2024 Pain in right foot (ICD-10 - M79.671) 05/28/2024 Other hammer toe(s) (acquired), right foot [...] toe(s) (acquired), left foot (ICD-10 - M20.42) 07/30/2024 Pain in left toe(s) (ICD-10 - M79.675) 05/28/2024 Flat foot [pes planus] (acquired), right [...] toe(s) (ICD-10 - M79.675) Plan Of Treatment No Information Insurance Providers Payer Name Payer Address Payer Phone Subscriber Number Group Number Insured Name Patient Relationship to Insured Coverage Start Date Coverage End Date [facility] [address] [address] [place] [id number] Gaviota Singh Self - patient is the insured
--- OUTSIDE RECORDS SUMMARY | 2024-12-29 10:04 | XMS_ITS ---
Author Organization [facility] Address [address] [place], [place] [address] Care Team Providers Care Pst Supervisor Name Role Phone CARON PARSON Unavailable [phone] Elena Auguste Unavailable Unavailable JEYSON LIMON Unavailable [phone] REASON FOR VISIT *General care Encounters Encounter Location Date Provider Diagnosis [address] [id number] 12/24/2024 JEYSON LIMON Tinea unguium B35.1 ; Hallux valgus (acquired), right foot M20.11 and Hallux valgus (acquired), left foot M20.12 Assessments Encounter Date Diagnosis (ICD Code) Assessment Notes Treatment Notes Treatment Clinical Notes Section Notes 12/24/2024 Tinea unguium (ICD-10 - B35.1) FUNGAL TOENAILS: Discussed various treatment options for fungal toenails including debridement, topical antifungals, oral antifungals, toenail avulsion, or toenail matrixectomy. NAIL DEBRIDEMENT: Nails 1-5 Bilateral were debrided extensively with nail nippers and emery board, reducing length and girth to pink healthy tissue with any subungual debris and necrotic tissue removed 12/24/2024 Hallux valgus (acquired), right foot (ICD-10 - M20.11) Bunion: Discussed various treatments with the patient regarding hallux abducto valgus deformity. Discussed conservative care consisting of padding, wider shoes, anti-inflammatori es, and orthotics. Discussed surgical treatment options and answered all questions about the intra-operative and post-operative treatment course. Padding: Application of accomodative padding to offload pressure from area. 12/24/2024 Hallux valgus (acquired), left foot (ICD-10 - M20.12) Plan Of Treatment Treatment Notes Assessment Notes Tinea unguium FUNGAL TOENAILS: Discussed various treatment options for fungal toenails including debridement, topical antifungals, oral antifungals, toenail avulsion, or toenail matrixectomy. NAIL DEBRIDEMENT: Nails 1-5 Bilateral were debrided extensively with nail nippers and emery board, reducing length and girth to pink healthy tissue with any subungual debris and necrotic tissue removed Hallux valgus (acquired), right foot Bunion: Discussed various treatments with the patient regarding hallux abducto valgus deformity. Discussed conservative care consisting of padding, wider shoes, anti-inflammatories, and orthotics. Discussed surgical treatment options and answered all questions about the intra-operative and post-operative treatment course. Padding: Application of accomodative padding to offload pressure from area. Progress Notes * Gaviota PALMERDOB:1950 (74 yo F)Acc No.[id number]:12/24/2024 Patient: Siena Gaviota PALACIO Provider: Ck LIMON :1950 A ge:74 Y S ex:Female Date:12/24/2024 Address:[address] [place], [place] [address] Subjective: * Chief Complaints: * 1 . *General care. * ROS: G eneral / Constitutional: Patient denies w eakness. R espiratory: Patient denies c hronic cough, shortness of breath, sputum production. C ardiovascular: Patient denies c hest pain, history of [place], irregular heartbeat. M usculoskeletal: Patient complains of a rch pain, hammertoes. ? P eripheral Vascular: Patient denies b lanching of skin, cold extremities, decreased sensation in extremities. S kin: Patient complains of n ail changes. N eurologic: Patient denies d izziness, gait abnormality, headache. * Medical History: Objective: * Vitals: * Examination: C onstitutional: Constitutional T he patient is awake, alert, well developed, well groomed and well nourished. D ermatologic: Skin findings: S kin is thin, atrophic and lacking pedal hair. Nail pathology: N ails 1, 2, 3, 4, and 5 bilateral are elongated, thick, discolored, and dystrophic with subungual debris. They are painful to palpation. ? V ascular: Dorsalis pedis pulse: 1 /4 b ilateral. Posterior tibial pulse: 0 /4 b ilateral. Capillary refill: g reater than 3 seconds. Edema: N o edema, bilateral. N eurologic: Gross sensation G ross sensation is intact to light touch.? M usculoskeletal: Muscle Strength M uscle strength is 5/5 in regards to dorsiflexion, plantarflexion, inversion, and eversion in bilateral lower extremities. Hallux Abducto Valgus L aterally deviated hallux with medial prominence of the 1st metatarsal head left foot., Laterally deviated hallux with medial prominence of the 1st metatarsal head right foot.. Assessment: * Assessment: 1. T inea unguium - B35.1 (Primary) 2 . H allux valgus (acquired), right foot - M20.11 3 . H allux valgus (acquired), left foot - M20.12 Plan: * Treatment: 2. H allux valgus (acquired), right foot Notes: Bunion: Discussed various treatments with the patient regarding hallux abducto valgus deformity. Discussed conservative care consisting of padding, wider shoes, anti-inflammatories, and orthotics. Discussed surgical treatment options and answered all questions about the intra-operative and post-operative treatment course. Padding: Application of accomodative padding to offload pressure from area. * Billing Information: * Visit Code: * Procedure Codes: * Electronic signature of RIANA LIMON DPM on 12/29/2024 at 10:04 AM CDT Sign off status: Pending * Provider: Ck LIMON Date: 12/24/2024 Generated for Jennifer stern/James/Robertitting on: 12/29/2024 10:04 AM CDT History and Physical Notes * Examination Category Sub-Category Detail Notes Category Not es Dermatologic Skin findings: Skin is thin, at rophic and lacking pedal hair Nail pathology: Nails 1, 2, 3, 4, an d 5 bilateral are elongated, thick, discolored, and dystrophic with subungual debris. They are painful to palpation Neurologic Gross sensation Gross sensation is intact to light touch Vascular Dorsalis pedis pulse: 1/4 bilateral Edema: No edema, bilateral Capillary refill: greater than 3 secon ds Posterior tibial pulse: 0/4 bilateral Musculoskeletal Muscle Strength Muscle strength is 5/5 in regards to dorsiflexion, plantarflexion, inversion, and eversion in bilateral lower extremities Hallux Abducto Valgus Laterally deviated hallux with medial prominence of the 1st metatarsal head left foot., Laterally deviated hallux with medial prominence of the 1st metatarsal head right foot. Constitutional Constitutional The patient is a wake, alert, well developed, well groomed and well nourished
--- OUTSIDE RECORDS SUMMARY | 2024-12-29 10:05 | XMS_ITS ---
Author Organization [facility] Address [address] [place], [place] [address] Care Team Providers Care Pan Greaser Name Role Phone CARON PARSON Unavailable [phone] Elena Auguste Unavailable Unavailable REASON FOR VISIT Patient presents for at-risk foot care . The patient has painful toenails that cause difficulty with ambulation and shoegear. The onset is gradual Encounters Encounter Location Date Provider Diagnosis [address] [id number] 07/30/2024 CARON PARSON Tinea unguium B35.1 ; Atherosclerosis of [place] arteries of extremities with intermittent claudication, bilateral legs I70.213 ; Pain in right foot M79.671 and Pain in left toe(s) M79.675 Assessments Encounter Date Diagnosis (ICD Code) Assessment Notes Treatment Notes Treatment Clinical Notes Section Notes 07/30/2024 Tinea unguium (ICD-10 - B35.1) FUNGAL TOENAILS: Discussed various treatment options for fungal toenails including debridement, topical antifungals, oral antifungals, toenail avulsion, or toenail matrixectomy. NAIL DEBRIDEMENT: Nails 1-5 Bilateral were debrided extensively with nail nippers and emery board, reducing length and girth to pink healthy tissue with any subungual debris and necrotic tissue removed 07/30/2024 Atherosclerosis of [place] arteries of extremities with intermittent claudication, bilateral legs (ICD-10 - I70.213) 07/30/2024 Pain in right foot (ICD-10 - M79.671) 07/30/2024 Pain in left toe(s) (ICD-10 - [...] any subungual debris and necrotic tissue removed Next Appt Details Follow Up: 10-12 Weeks, Reas on: At Risk Foot care, sooner if problems arise Progress Notes * Gaviota PALMERDOB:1950 (74 yo F)Acc No.[id number]:07/30/2024 Patient: Gaviota TEJADA Provider: Edison Parson DPM :1950 A ge:73 Y S ex:Female Date:07/30/2024 Address:[address] [place], [place] [address] Subjective: * Chief Complaints: * 1 . Patient presents for at-risk foot care . The patient has painful toenails that cause difficulty with ambulation and shoegear. The onset is gradual. * HPI: H PI: sample. * Medical History: * Medications: N one Objective: * Vitals: * Examination: C onstitutional: [...] inversion, and eversion in bilateral lower extremities. ? Assessment: * Assessment: 1. T josea unguium - B35.1 (Primary) 2 . A therosclerosis of [place] arteries of extremities with intermittent claudication, bilateral legs - I70.213 3 . P ain in right foot - M79.671 4 . P ain in left toe(s) - M79.675 Plan: * Treatment: * Follow Up: 1 0-12 Weeks (Reason: At Risk Foot care, sooner if problems arise) * Billing Information: * Visit Code: 87493 Office Visit, Est Pt., Level 3. * Procedure Codes: * Electronic signature of CARON PARSON DPM on 12/29/2024 at 10:04 AM CDT Sign off status: Pending * Provider: Edison Parson DPM Date: 0 07/30/2024 Generated for Jennifer stern/James/Roma on: 0 12/29/2024 10:04 AM CDT History and Physical Notes * HPI (History of Present Illness) Category Sub-Category Detail Notes Category Not es HPI sample Examination Category Sub-Category Detail Notes Category Not [...] inversion, and eversion in bilateral lower extremities Constitutional Constitutional The patient is a [place], alert, well developed, well groomed and well nourished
--- OUTSIDE RECORDS SUMMARY | 2024-12-29 10:05 | XMS_ITS | Clinical Summary ---
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
[2024-12-29 10:13] LABS: Hematocrit 41.3 % (35.0-42.0); Hemoglobin 13.4 g/dL (11.7-13.8); Immature Granulocyte Percent A 0.5 % (0.0-0.0); Lymphocytes Absolute Auto 2.43 K/mm3 (1.10-4.50); Mean Corpuscular HGB Conc 32.4 g/dL (32-36); Mean Corpuscular Hemoglobin 29.8 pg (27.0-31.0); Mean Corpuscular Volume 92.0 fL (78.0-102.0); Nucleated Red Blood Cells Absolute Auto 0.00 K/mm3 (0.00-0.00); Nucleated Red Blood Cells Perc 0.0 % (0-0.0); Platelet Count Result 210 K/mm3 (150-420); Red Blood Count 4.49 M/mm3 (4.20-5.40); White Blood Count 6.4 K/mm3 (4.8-10.8)
[2024-12-29 10:23] LABS: Hemoglobin A1C 5.2 % (<5.7)
[2024-12-29 10:33] LABS: Alanine Aminotransferase 21 U/L (6-35); Albumin Level 3.9 g/dL (3.5-5.1); Alkaline Phosphatase 55 U/L (38-126); Anion Gap 6 mmol/L (4-12); Aspartate Amino Transferase 27 U/L (14-36); Bilirubin,Total 0.5 mg/dL (0.2-1.3); Blood Urea Nitrogen 28 mg/dL (7-17); Calcium 9.0 mg/dL (8.4-10.2); Carbon Dioxide 23 mmol/L (22-30); Chloride 109 mmol/L (98-107); Cholesterol 185 mg/dL (0-200); Estimated Glomerular Filt Rate 57; Glucose 93 mg/dL (65-110); HDL Direct 55 mg/dL; Osmolality Calculated 291 mOsm/kg (285-295); Potassium 4.4 mmol/L (3.4-5.0); Sodium 138 mmol/L (137-145); Total Protein 6.9 g/dL (6.3-8.2); Triglycerides 153 mg/dL (<150)
[2024-12-29 11:03] LABS: Thyroid Stimulating Hormone Reflex 4.560 uIU/mL (0.465-4.68)
[2024-12-29 11:29] LABS: Free T4 Free Thyroxine Reflex 1.00 ng/dL (0.78-2.19)
== END 2024-12-29 10:01 | disposition home or self-care (01) ==
PROVIDERS: PCP Family Medicine; Visit Provider Family Medicine
DX: I12.9 Hypertensive chronic kidney disease with stage 1 through stage 4 chronic kidney disease, or unspecified chronic kidney disease (principal); N18.30 Chronic kidney disease, stage 3 unspecified; Z13.1 Encounter for screening for diabetes mellitus; D64.9 Anemia, unspecified; E78.2 Mixed hyperlipidemia; E03.9 Hypothyroidism, unspecified
CPT/HCPCS: 36415; 80053; 80061; 83036; 84439; 84443; 85025

== ENCOUNTER 2024-12-31 08:01 | Outpatient (CLI) | payer MEDICARE, SELFPAY ==
--- OUTSIDE RECORDS SUMMARY | 2024-12-31 08:04 | XMS_ITS ---
Author Organization [facility] Address [address] [place], [place] [address] Care Team Providers Care Assembler Carbon Brushes Name Role Phone CARON PARSON Unavailable [phone] Elena Auguste Unavailable Unavailable JEYSON LIMON Unavailable [phone] REASON FOR VISIT *General care Encounters Encounter Location Date Provider Diagnosis [address] [id number] 12/24/2024 JEYSON LIMON Tinea unguium B35.1 ; [...] Notes * Gaviota PALMERDOB:1950 (74 yo F)Acc No.[id number]:12/24/2024 Patient: Siena Gaviota PALACIO Provider: Ck LIMON :1950 A ge:74 Y S ex:Female Date:12/24/2024 Address:[address] [place], [place] [address] Subjective: * Chief Complaints: * 1 . *General care. * ROS: G eneral / Constitutional: Patient denies w eakness. R espiratory: Patient denies c hronic cough, shortness of breath, sputum production. C ardiovascular: Patient denies c hest pain, history of [place], irregular heartbeat. M usculoskeletal: Patient complains of [...] Electronic signature of RIANA LIMON DPM on 12/31/2024 at 08:04 AM CDT Sign off status: Pending * Provider: Ck LIMON Date: 12/24/2024 Generated for Jennifer stern/James/Robertitting on: 12/31/2024 08:04 AM CDT History and Physical Notes * [...]
--- OUTSIDE RECORDS SUMMARY | 2024-12-31 08:04 | XMS_ITS | Patient Health Record ---
Author Organization [facility] Address [address] [place], [place] [address] Care Team Providers Care Cribber Name Role Phone DELIO CARON Unavailable [phone] Elena Auguste Unavailable Unavailable ANNEL NEWMAN Unavailable [phone] JEYSON LIMON Unavailable [phone] Allergies Allergen (clinical drug ingredient) Drug/Non Drug [...] 10/22/2024 Encounters Encounter Location Date Provider Diagnosis [facility] [address] [place], [place] [id number] 07/30/2024 CARON PARSON Tinea unguium B35.1 ; Atherosclerosis of [place] arteries of extremities with intermittent claudication, bilateral legs I70.213 ; Pain in right foot M79.671 and Pain in left toe(s) M79.675 [facility] [address] [place], [place] [id number] 01/16/2024 ANNEL NEWMAN Unspecified atherosclerosis of [place] arteries of extremities, bilateral legs I70.203 ; Tinea unguium B35.1 ; Other hammer toe(s) (acquired), right foot M20.41 ; Other hammer toe(s) (acquired), left foot M20.42 ; Flat foot [pes planus] (acquired), right foot M21.41 ; Flat foot [pes planus] (acquired), left foot M21.42 ; Pain in right toe(s) M79.674 and Pain in left toe(s) M79.[address] [id number] 03/19/2024 ANNEL NEWMAN Unspecified atherosclerosis of [place] arteries of extremities, bilateral legs I70.203 ; Tinea unguium B35.1 ; Other hammer toe(s) (acquired), right foot M20.41 ; Other hammer toe(s) (acquired), left foot M20.42 ; Flat foot [pes planus] (acquired), right foot M21.41 ; Flat foot [pes planus] (acquired), left foot M21.42 ; Pain in right toe(s) M79.674 and Pain in left toe(s) M79.[address] [id number] 05/28/2024 ANNEL NEWMAN Unspecified atherosclerosis of [place] arteries of extremities, bilateral legs I70.203 ; Tinea unguium B35.1 ; Other hammer toe(s) (acquired), right foot M20.41 ; Other hammer toe(s) (acquired), left foot M20.42 ; Flat foot [pes planus] (acquired), right foot M21.41 ; Flat foot [pes planus] (acquired), left foot M21.42 ; Pain in right toe(s) M79.674 and Pain in left toe(s) M79.[address] [id number] 10/22/2024 CARON PARSON Tinea unguium B35.1 ; [...] and prescription treatments. 01/16/2024 Unspecified atherosclerosis of [place] arteries of extremities, bilateral legs (ICD-10 - [...] and prescription treatments. 03/19/2024 Unspecified atherosclerosis of [place] arteries of extremities, bilateral legs (ICD-10 - [...] and prescription treatments. 05/28/2024 Unspecified atherosclerosis of [place] arteries of extremities, bilateral legs (ICD-10 - [...] and necrotic tissue removed 07/30/2024 Atherosclerosis of [place] arteries of extremities with intermittent claudication, bilateral [...] Insured Coverage Start Date Coverage End Date [facility] [address] [address] [place] [id number] Gaviota Singh Self - patient is the insured
--- OUTSIDE RECORDS SUMMARY | 2024-12-31 08:04 | XMS_ITS | Clinical Summary ---
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
--- OUTSIDE RECORDS SUMMARY | 2024-12-31 08:04 | XMS_ITS | Continuity of Care Document ---
Author Organization [facility] Address [address] [place] [address] [address] [place] [address] Phone Care Team Providers Care Print Journalist Name Role Phone Rosa Srinivasan Unavailable Unavailable Procedures Procedure Date Eye Exam, New Patient Advance Directives Directive Yes / No Effective Date File Name No Information Encounters Encounter Description Practice Location Reason(s) For Visit Diagnoses Date Provider Providers Copied on Encounter [facility], [address] [place] [address] [address], [place], [place], [address], [place] tel:[phone] [facility] No Information [address] , [address], [place], [address], [place]. tel:[phone] Family History Family Member Type Diagnosis Age At Onset No Information Payers Payer name Insurance type Covered libertarian ID Authoriza tijerome(s) [facility] [id number] Social History Type Description Quantity Date Captured [...]
--- OUTSIDE RECORDS SUMMARY | 2024-12-31 08:05 | XMS_ITS ---
Author Organization [facility] Address [address] [place], [place] [address] Care Team Providers Care Carbonation Equipment Operator Name Role Phone CARON PARSON Unavailable [phone] Elena Auguste Unavailable Unavailable REASON FOR VISIT Patient presents for at-risk foot care . The patient has painful toenails that cause difficulty with ambulation and shoegear. The onset is gradual Encounters Encounter Location Date Provider Diagnosis [address] [id number] 07/30/2024 CARON PARSON Tinea unguium B35.1 ; Atherosclerosis of [place] arteries of extremities with intermittent claudication, bilateral [...] and necrotic tissue removed 07/30/2024 Atherosclerosis of [place] arteries of extremities with intermittent claudication, bilateral [...] Notes * Gaviota PALMERDOB:1950 (74 yo F)Acc No.[id number]:07/30/2024 Patient: Gaviota TEJADA Provider: Edison Parson DPM :1950 A ge:73 Y S ex:Female Date:07/30/2024 Address:[address] [place], [place] [phone] Subjective: * Chief Complaints: * 1 . [...] B35.1 (Primary) 2 . A therosclerosis of [place] arteries of extremities with intermittent claudication, bilateral legs - I70.213 3 . P ain in right foot - M79.671 4 . P ain in left toe(s) - M79.675 Plan: * Treatment: * Follow Up: 1 0-12 Weeks (Reason: At Risk Foot care, sooner if problems arise) * Billing Information: * Visit Code: 21142 Office Visit, Est Pt., Level 3. * Procedure Codes: * Electronic signature of CARNO PARSON DPM on 12/31/2024 at 08:04 AM CDT Sign off status: Pending * Provider: Edison Parson DPM Date: 0 07/30/2024 Generated for Jennifer stern/James/Roma on: 0 12/31/2024 08:04 AM CDT History and Physical [...]
[2024-12-31 08:08] LABS: Add Urine Microscopic? YES; Appearance Urine Clear (Clear); Glucose Urine UA Negative (Negative); Leukocyte Esterase Ur 1+ LEU/UL (Negative); Nitrate Urine Negative (Negative); Specific Grav Ur 1.010 (1.010-1.020)
== END 2024-12-31 08:02 | disposition home or self-care (01) ==
LOC: CHSLAB 08:02
PROVIDERS: PCP Family Medicine; Visit Provider Family Medicine
DX: N18.30 Chronic kidney disease, stage 3 unspecified (principal); R82.90 Unspecified abnormal findings in urine
CPT/HCPCS: 81001; 87086

== ENCOUNTER 2025-01-05 09:14 | Outpatient (CLI) | payer MEDICARE, SELFPAY ==
--- NOTE | ~2025-01-05 | XR_ITS ---
Right Knee Technique: AP, lateral, sunrise, and oblique views were obtained. Clinical History: Pain Findings: No fracture or dislocation is seen. Osseous alignment is anatomic. There is mild tricompart mental degenerative change. Soft tissues are unremarkable. No joint effusion is seen. Impression: Mild tricompartmental degenerative change. Reviewed, dictated and finalized at [facility]. Impression: Mild tricompartmental degenerative change.
--- OUTSIDE RECORDS SUMMARY | 2025-01-05 09:29 | XMS_ITS | Continuity of Care Document ---
Author Organization [facility] Address [address] [place] [address] [address] [place] [address] Phone Care Team Providers Care Senior Product Manager Name Role Phone Rosa Srinivasan Unavailable Unavailable Procedures Procedure Date Eye Exam, New Patient Advance Directives Directive Yes / No Effective Date File Name No Information Encounters Encounter Description Practice Location Reason(s) For Visit Diagnoses Date Provider Providers Copied on Encounter [facility], [address] [place] [address] [address], [place], [place], [address], [place] tel:[phone] [facility] No Information [address] , [address], [place], [address], [place]. tel:[phone] Family History Family Member Type Diagnosis Age At Onset No Information Payers Payer name Insurance type Covered republican ID Authoriza tijerome(s) [facility] [id number] Social History Type Description Quantity Date Captured [...]
--- OUTSIDE RECORDS SUMMARY | 2025-01-05 09:29 | XMS_ITS | Clinical Summary ---
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
--- OUTSIDE RECORDS SUMMARY | 2025-01-05 09:29 | XMS_ITS | Patient Health Record ---
Author Organization [facility] Address [address] [place], [place] [address] Care Team Providers Care Cashier And Waiter/Waitress Name Role Phone DELIO CARON Unavailable [phone] Elena Auguste Unavailable Unavailable ANNEL NEWMAN Unavailable [phone] JEYSON LIMON Unavailable [phone] Allergies Allergen (clinical drug ingredient) Drug/Non Drug [...] 10/22/2024 Encounters Encounter Location Date Provider Diagnosis [facility] [address] [place], [place] [id number] 07/30/2024 CARON PARSON Tinea unguium B35.1 ; Atherosclerosis of [place] arteries of extremities with intermittent claudication, bilateral legs I70.213 ; Pain in right foot M79.671 and Pain in left toe(s) M79.675 [facility] [address] [place], [place] [id number] 01/16/2024 ANNEL NEWMAN Unspecified atherosclerosis of [place] arteries of extremities, bilateral legs I70.203 ; Tinea unguium B35.1 ; Other hammer toe(s) (acquired), right foot M20.41 ; Other hammer toe(s) (acquired), left foot M20.42 ; Flat foot [pes planus] (acquired), right foot M21.41 ; Flat foot [pes planus] (acquired), left foot M21.42 ; Pain in right toe(s) M79.674 and Pain in left toe(s) M79.[address] [id number] 03/19/2024 ANNEL NEWMAN Unspecified atherosclerosis of [place] arteries of extremities, bilateral legs I70.203 ; Tinea unguium B35.1 ; Other hammer toe(s) (acquired), right foot M20.41 ; Other hammer toe(s) (acquired), left foot M20.42 ; Flat foot [pes planus] (acquired), right foot M21.41 ; Flat foot [pes planus] (acquired), left foot M21.42 ; Pain in right toe(s) M79.674 and Pain in left toe(s) M79.[address] [id number] 05/28/2024 ANNEL NEWMAN Unspecified atherosclerosis of [place] arteries of extremities, bilateral legs I70.203 ; Tinea unguium B35.1 ; Other hammer toe(s) (acquired), right foot M20.41 ; Other hammer toe(s) (acquired), left foot M20.42 ; Flat foot [pes planus] (acquired), right foot M21.41 ; Flat foot [pes planus] (acquired), left foot M21.42 ; Pain in right toe(s) M79.674 and Pain in left toe(s) M79.[address] [id number] 10/22/2024 CARON PARSON Tinea unguium B35.1 ; [...] and prescription treatments. 01/16/2024 Unspecified atherosclerosis of [place] arteries of extremities, bilateral legs (ICD-10 - [...] and prescription treatments. 03/19/2024 Unspecified atherosclerosis of [place] arteries of extremities, bilateral legs (ICD-10 - [...] and prescription treatments. 05/28/2024 Unspecified atherosclerosis of [place] arteries of extremities, bilateral legs (ICD-10 - [...] and necrotic tissue removed 07/30/2024 Atherosclerosis of [place] arteries of extremities with intermittent claudication, bilateral [...] Insured Coverage Start Date Coverage End Date [facility] [address] [address] [place] [id number] Gaviota Singh Self - patient is the insured
--- OUTSIDE RECORDS SUMMARY | 2025-01-05 09:29 | XMS_ITS ---
Author Organization [facility] Address [address] [place], [place] [id number] Care Team Providers Care Chief Design Engineer Name Role Phone CARON PARSON Unavailable [phone] Elena Auguste Unavailable Unavailable REASON FOR VISIT Patient presents for at-risk foot care . The patient has painful toenails that cause difficulty with ambulation and shoegear. The onset is gradual Encounters Encounter Location Date Provider Diagnosis [address] [id number] 07/30/2024 CARON PARSON Tinea unguium B35.1 ; Atherosclerosis of [place] arteries of extremities with intermittent claudication, bilateral [...] and necrotic tissue removed 07/30/2024 Atherosclerosis of [place] arteries of extremities with intermittent claudication, bilateral [...] Notes * Gaviota PALMERDOB:1950 (74 yo F)Acc No.[id number]:07/30/2024 Patient: Gaviota TEJADA Provider: Edison Parson DPM :1950 A ge:73 Y S ex:Female Date:07/30/2024 Address:[address] [place], [place] [id number] Subjective: * Chief Complaints: * 1 . [...] ? Assessment: * Assessment: 1. T josea ungangélicaum - B35.1 (Primary) 2 . A therosclerosis of [place] arteries of extremities with intermittent claudication, bilateral legs - I70.213 3 . P ain in right foot - M79.671 4 . P ain in left toe(s) - M79.675 Plan: * Treatment: * Follow Up: 1 0-12 Weeks (Reason: At Risk Foot care, sooner if problems arise) * Billing Information: * Visit Code: 18601 Office Visit, Est Pt., Level 3. * Procedure Codes: * Electronic signature of CARON PARSON DPM on 01/05/2025 at 09:29 AM CDT Sign off status: Pending * Provider: Edison Parson DPM Date: 0 07/30/2024 Generated for Jennifer stern/James/Roma on: 0 01/05/2025 09:29 AM CDT History and Physical Notes * [...]
--- OUTSIDE RECORDS SUMMARY | 2025-01-05 09:29 | XMS_ITS ---
Author Organization [facility] Address [address] [place], [place] [id number] Care Team Providers Care Crystal Slicer Name Role Phone CARON PARSON Unavailable [phone] Elena Auguste Unavailable Unavailable JEYSON LIMON Unavailable [phone] REASON FOR VISIT *General care Encounters Encounter Location Date Provider Diagnosis [address] [phone] 12/24/2024 JEYSON LIMON Tinea unguium B35.1 ; [...] Notes * Gaviota PALMERDOB:1950 (74 yo F)Acc No.[id number]:12/24/2024 Patient: Siena Gaviota PALACIO Provider: Ck LIMON :1950 A ge:74 Y S ex:Female Date:12/24/2024 Address:[address] [place], [place] [phone] Subjective: * Chief Complaints: * 1 . *General care. * ROS: G eneral / Constitutional: Patient denies w eakness. R espiratory: Patient denies c hronic cough, shortness of breath, sputum production. C ardiovascular: Patient denies c hest pain, history of NE, irregular heartbeat. M usculoskeletal: Patient complains of [...] Electronic signature of RIANA LIMON DPM on 01/05/2025 at 09:29 AM CDT Sign off status: Pending * Provider: Ck LIMON Date: 12/24/2024 Generated for Jennifer stern/James/Robertitting on: 01/05/2025 09:29 AM CDT History and Physical [...]
== END 2025-01-05 09:15 | disposition home or self-care (01) ==
LOC: CHSLAB 09:16 → CHSIMG 09:16
PROVIDERS: PCP Family Medicine; Visit Provider Orthopaedic Surgery
DX: M25.561 Pain in right knee (principal)
CPT/HCPCS: 73564